=== PATIENT | male | born 1950 | race Caucasian/White ===

== ENCOUNTER → 2018-02-28 08:09 | Outpatient (CLI) | payer OTHER, SELFPAY ==
[2018-02-28 09:47] LABS: Absolute Lymphocyte Count 3.18 X10^3/ul (0.83-4.51); Basophil# 0.06 X10^3/uL; Eosinophil# 0.26 X10^3/uL; Eosinophils% 4.2 % (0-5); Hematocrit 45.9 % (40-54); Hemoglobin 15.5 g/dl (13.0-16.5); Lymphocyte # 3.18 X10^3/ul (4.0); Lymphocyte % 51.5 % (19-41); Mean Corp Hgb Conc 33.8 g/gl (32-36); Mean Corpuscular Hgb 31.2 pg (27.0-32.0); Mean Corpuscular Volume 92.4 fL (80-94); Mean Platelet Vol. 11.3 fl (6.2-12.0); Monocyte# 0.69 X10^3/uL; Monocyte% 11.2 % (0-10); Neutrophil # 1.98 X10^3/uL (2.7-7.7); Neutrophil % 31.9 % (47-70); Platelet Count 245 K/mm3 (150-450); Red Blood Count 4.97 M/mm3 (4.6-6.2); White Blood Count 6.2 K/mm3 (4.4-11.0)
[2018-02-28 09:49] LABS: POSITIVE COUNT NO; POSITIVE DIFFERENTIAL NO; POSITIVE MORPHOLOGY NO
[2018-02-28 10:17] LABS: ALB/GLOB Ratio 0.9 RATIO (0.9-2.4); AST(SGOT) 22 U/L (15-37); Alanine Aminotransfer ALT/SGPT 35 U/L (16-61); Albumin, Serum 3.7 g/dL (3.2-5.0); Alkaline Phosphatase 90 U/L (45-117); Anion Gap 6 (5-15); BUN 16 mg/dL (7-18); BUN/Creat Ratio 22.8 RATIO (10-20); Calcium,Total 8.2 mg/dL (8.5-10.1); Chloride 107 mmol/L (98-107); Cholesterol 164 mg/dL (200); EST Glomerular Filtration Rate 119 mL/min (>60); Est Glom Filt Rate - Afr Amer 144 mL/min (>60); Globulin 3.9 g/dL (2.2-4.2); Glucose 100 mg/dL (74-106); High Density Lipoprotein 32 mg/dL; PSA,Total - Annual Screen 1.45 ng/mL (0.00-4.00); Potassium 4.5 mmol/L (3.5-5.1); Protein, Total 7.6 g/dL (6.4-8.2); Sodium Level 139 mmol/L (136-145); Triglycerides 128 mg/dL; Very Low Density Lipoprotein 26 mg/dL (5-40)
[2018-02-28 10:21] LABS: Hemoglobin A1c 6.1 % (4.2-6.3)
== END ==
PROVIDERS: Family Provider Nurse Practitioner Family; PCP Nurse Practitioner Family; Referring Provider Nurse Practitioner Family; Visit Provider Nurse Practitioner Family
DX: E78.5 Hyperlipidemia, unspecified (principal); Z12.5 Encounter for screening for malignant neoplasm of prostate; R73.01 Impaired fasting glucose
CPT/HCPCS: 36415; 80053; 80061; 83036; 84153; 85025; G0103

== ENCOUNTER → 2019-03-01 05:36 | Outpatient (CLI) | payer OTHER, SELFPAY ==
[2019-03-01 07:10] LABS: Hematocrit 46.8 % (40-54); Hemoglobin 15.7 g/dL (13.0-16.5); Mean Corp Hgb Conc 33.5 g/dL (32-36); Mean Corpuscular Hgb 30.8 pg (27.0-32.0); Mean Corpuscular Volume 91.9 fL (80-94); Mean Platelet Vol. 10.7 fl (6.2-12.0); Platelet Count 218 K/mm3 (150-450); RBC Distribution Width CV 12.6 % (11.6-14.6); RBC Distribution Width SD 42.8 fl (35.1-43.9); Red Blood Count 5.09 M/mm3 (4.6-6.2); White Blood Count 5.9 K/mm3 (4.4-11.0)
[2019-03-01 07:49] LABS: AST(SGOT) 19 U/L (15-37); Alanine Aminotransfer ALT/SGPT 34 U/L (16-61); Albumin, Serum 3.6 g/dL (3.2-5.0); Alkaline Phosphatase 83 U/L (45-117); Anion Gap 8 (5-15); BUN 11 mg/dL (7-18); BUN/Creat Ratio 15.3 RATIO (10-20); Calcium,Total 8.3 mg/dL (8.5-10.1); Chloride 107 mmol/L (98-107); Cholesterol 160 mg/dL (200); Creatinine, Serum 0.72 mg/dL (0.70-1.30); EST Glomerular Filtration Rate 116 mL/min (>60); Est Glom Filt Rate - Afr Amer 140 mL/min (>60); Globulin 3.7 g/dL (2.2-4.2); Glucose 122 mg/dL (74-106); High Density Lipoprotein 30 mg/dL; Potassium 4.1 mmol/L (3.5-5.1); Protein, Total 7.3 g/dL (6.4-8.2); Sodium Level 139 mmol/L (136-145); Triglycerides 164 mg/dL
[2019-03-01 07:50] LABS: PSA,Total - Annual Screen 1.67 ng/mL (0.00-4.00); Very Low Density Lipoprotein 33 mg/dL (5-40)
== END ==
LOC: LAB.FUTURE 05:37 → LAB 05:50
PROVIDERS: Family Provider Nurse Practitioner Family; PCP Nurse Practitioner Family; Referring Provider Nurse Practitioner Family; Visit Provider Nurse Practitioner Family
DX: Z00.00 Encounter for general adult medical examination without abnormal findings (principal); Z12.5 Encounter for screening for malignant neoplasm of prostate; Z13.220 Encounter for screening for lipoid disorders
CPT/HCPCS: 36415; 80053; 80061; 84153; 85027; G0103

== ENCOUNTER → 2020-03-06 14:45 | Outpatient (CLI) | payer OTHER, SELFPAY ==
[2020-03-06 15:16] LABS: Hematocrit 50.4 % (40-54); Hemoglobin 16.5 g/dL (13.0-16.5); Mean Corp Hgb Conc 32.7 g/dL (32-36); Mean Corpuscular Hgb 30.4 pg (27.0-32.0); Mean Corpuscular Volume 92.8 fL (80-94); Mean Platelet Vol. 10.2 fl (6.2-12.0); Platelet Count 262 K/mm3 (150-450); RBC Distribution Width CV 12.6 % (11.6-14.6); RBC Distribution Width SD 43.1 fl (35.1-43.9); Red Blood Count 5.43 M/mm3 (4.6-6.2); White Blood Count 6.9 K/mm3 (4.4-11.0)
[2020-03-06 15:38] LABS: International Normalized Ratio 1.1; Prothrombin Time (Protime)PT. 13.7 SECONDS (11.7-14.9)
[2020-03-06 15:39] LABS: Partial Thromboplast Time 27.5 Seconds (24.1-36.2)
[2020-03-06 15:51] LABS: ALB/GLOB Ratio 0.9 RATIO (0.9-2.4); AST(SGOT) 37 U/L (15-37); Alanine Aminotransfer ALT/SGPT 53 U/L (16-61); Albumin, Serum 3.8 g/dL (3.2-5.0); Alkaline Phosphatase 86 U/L (45-117); Anion Gap 7 (5-15); BUN 13 mg/dL (7-18); Calcium,Total 8.2 mg/dL (8.5-10.1); Chloride 104 mmol/L (98-107); Creatinine, Serum 0.86 mg/dL (0.70-1.30); EST Glomerular Filtration Rate 93 mL/min (>60); Est Glom Filt Rate - Afr Amer 113 mL/min (>60); Globulin 4.3 g/dL (2.2-4.2); Glucose 132 mg/dL (74-106); Potassium 3.8 mmol/L (3.5-5.1); Protein, Total 8.1 g/dL (6.4-8.2); Sodium Level 136 mmol/L (136-145)
== END ==
PROVIDERS: PCP Nurse Practitioner Family; Visit Provider Nurse Practitioner Family
DX: R04.0 Epistaxis (principal)
CPT/HCPCS: 36415; 80053; 85027; 85610; 85730

== ENCOUNTER 2020-03-20 19:32 | Inpatient (IN) | payer OTHER, SELFPAY ==
[2020-03-20] VITALS (15 sets, daily range): BP systolic 110–146; BP diastolic 60–114; PULSE 74–106; RESP 12–30; TEMP 36.2–37.3; O2SAT 60–98; BMI 28.5; BMI 28.4
--- NOTE | 2020-03-20 19:52 | EKG12_ITS ---
Test Reason : DYSRHYTHMIA Blood Pressure : / mmHG Vent. Rate : 105 BPM Atrial Rate : 105 BPM P-R Int : 138 ms QRS Dur : 072 ms QT Int : 354 ms P-R-T Axes : -05 -08 023 degrees QTc Int : 467 ms Sinus tachycardia Otherwise normal ECG Confirmed by ALF MATA, DARIUSZ ([id number]), book editor CHAKA PÉREZ ([id number]) on 03/21/2020 1:08:12 PM Referred By: Heydi Agustin Confirmed By:DARIUSZ MILNER MD
--- NOTE | 2020-03-20 19:55 | ED.VIS.GEN ---
History of Present Illness Chief Complaint: Shortness of Breath Informant: Patient Onset: Days - 10 days Context: Gradual Onset Current Severity: Severe Maximum Severity: Severe Narrative: Patient states he tested positive for Covid approximate 10 days ago. He said increasing shortness of breath since that time. On arrival to the emergency room O2 sat of 60% on room air with respiratory rate around 40. The time of my examination is 83% on a nonrebreather mask. He denies history of lung problems. He states he does not take any medications on a regular basis. His is also here being seen with similar illness. Past Medical History - Allergies and Home Meds Allergies/Adverse Reactions: Allergies Penicillins [PCN] Adverse Reaction (Verified 03/20/20 19:35) Swelling Primary Care Physician: Barron Luna BOX BLANK MACHINE OPERATOR HELPER, BOX BLANK MACHINE OPERATOR HELPER-C [Primary Care Provider] - Lives: Spouse/ Significant Other Review of Systems Eyes: Denies: Visual changes - bilaterally ENT: Denies: Bilateral ear pain Cardiovascular: Denies: Chest pain Respiratory: Reports: Dyspnea, Cough Gastrointestinal: Denies: Abdominal pain, Vomiting, Diarrhea Musculoskeletal: Denies: Extremity Pain Skin: Denies: Rash Hematologic: Denies: Easy bruising, Easy bleeding Allergy: Denies: Uticaria Physical Exam Vital Signs/Narrative: Vital Signs Temp Pulse Resp BP Pulse Ox 03/20/20 19:45 106 H 24 H 82 03/20/20 19:40 103 H 28 H 73 03/20/20 19:33 97.2 F L 100 30 H 138/114 H 60 Inital Vital Signs reviewed: Yes General: Well nourished, Well developed Head: Normocephalic ENT: Dry mucous membranes Neck: Supple Cardiovascular: Regular rate, Regular rhythm Respiratory: Diminished - Diminished at the left base, - - Speaking short sentences. Answering questions appropriately. Abdomen: Soft, Nontender Skin: Normal color Neurological: Alert, Oriented x3 Diagnostic/Tx/Re-eval Impressions Chest X-Ray 03/20/20 20:35 IMPRESSION: Findings consistent with Covid 19 pneumonia more severe on the left Electronically Signed: Alirio Soria MD at 20:56 EST , Service support , 03/20/20 20:35 Chest 1 View (Portable) [RAD] Stat 03/20/20 21:33 CTA Chest W/WO Contrast [CT] Stat Laboratory Results 03/20/20 03/20/20 03/20/20 19:50 19:50 19:50 WBC 10.6 RBC 5.41 Hgb 16.8 H Hct 50.1 MCV 92.6 MCH 31.1 MCHC 33.5 RDW Std Deviation 42.9 RDW Coeff of Carol 12.6 Plt Count 364 MPV 10.0 Immature Gran % (Auto) 1.500 H Neut % (Auto) 64.4 Lymph % (Auto) 22.9 [place] % (Auto) 10.6 H Eos % (Auto) 0.0 Baso % (Auto) 0.6 Absolute Neuts (auto) 6.8 Absolute Lymphs (auto) 2.43 Nucleated RBC % 0 Reactive Lymphocytes 1+ D-Dimer Quant (PE/DVT) 3.20 H* Specimen Type Sample Site pH Bicarbonate Actual Total CO2 Base Excess O2 Saturation O2 % ABG pCO2 ABG pO2 Chang Test Respiration Rate O2 Delivery Device POC PEEP Sodium 134 L Potassium 3.7 Chloride 100 Carbon Dioxide 20.0 L Anion Gap 14 BUN 25 H Creatinine 1.35 H Estim Creat Clear Calc 56.68 Est GFR (MDRD) Af Amer 67 Est GFR (MDRD) Non-Af 56 L BUN/Creatinine Ratio 18.5 Glucose 190 H Lactic Acid Calcium 8.0 L Total Bilirubin 0.80 AST 90 H ALT 102 H Alkaline Phosphatase 104 Troponin I < 0.015 Total Protein 8.2 Albumin 2.8 L Globulin 5.4 H Albumin/Globulin Ratio 0.5 L 03/20/20 03/20/20 19:50 20:27 WBC RBC Hgb Hct MCV MCH MCHC RDW Std Deviation RDW Coeff of Carol Plt Count MPV Immature Gran % (Auto) Neut % (Auto) Lymph % (Auto) [place] % (Auto) Eos % (Auto) Baso % (Auto) Absolute Neuts (auto) Absolute Lymphs (auto) Nucleated RBC % Reactive Lymphocytes D-Dimer Quant (PE/DVT) Specimen Type ART Sample Site L Radial pH 7.48 H Bicarbonate Actual 16.1 L Total CO2 17 Base Excess -8 L O2 Saturation 97 O2 % 100 ABG pCO2 21.9 L ABG pO2 82 Chang Test Positive Respiration Rate 12 O2 Delivery Device BiPAP POC PEEP 10 Sodium Potassium Chloride Carbon Dioxide Anion Gap BUN Creatinine Estim Creat Clear Calc Est GFR (MDRD) Af Amer Est GFR (MDRD) Non-Af BUN/Creatinine Ratio Glucose Lactic Acid 5.9 H* Calcium Total Bilirubin AST ALT Alkaline Phosphatase Troponin I Total Protein Albumin Globulin Albumin/Globulin Ratio - EKG Initial EKG Interpretation: Sinus Tachycardia - Sinus tach at 105 with no acute ischemia. - Medical Decision Making At time of my examination patient was not nonrebreather and satting 83%. He was placed on BiPAP and has been satting 93% on this. Discussion at bedside was initiated regarding his desire for intubation. He states he does not want intubation if it would be required. Patient's blood work does reveal an elevated D-dimer at 3.2 and lactic acid of 5.9. Chest x-ray is consistent with Covid pneumonia. Patient was given Decadron on arrival. Patient be admitted to the ICU and CTA chest has been ordered. - Critical Care Time Critical care time (excluding procedures): 30-74 minutes ED Disposition - Plan for ED Patient: Disposition: Acute Care Hospital [facility] [place] Diagnosis: COVID-19 Referrals: Barron Luna BOX BLANK MACHINE OPERATOR HELPER, BOX BLANK MACHINE OPERATOR HELPER-C [Primary Care Provider] -
--- NOTE | 2020-03-20 20:07 | EKG12_ITS ---
Test Reason : DYSRHYTHMIA Blood Pressure : / mmHG Vent. Rate : 105 BPM Atrial Rate : 105 BPM P-R Int : 138 ms QRS Dur : 068 ms QT Int : 346 ms P-R-T Axes : -11 -06 024 degrees QTc Int : 457 ms Poor data quality, interpretation may be adversely affected Sinus tachycardia Otherwise normal ECG When compared with ECG of 07-JUL-2003 08:35, QT has lengthened Confirmed by NUNU MATA, IGNACIO ([id number]), photographic editor AGUILAR WASHINGTON ([id number]) on 04/07/2020 4:09:41 PM Referred By: Heydi Agustin Confirmed By:JASON EDDY MD
[2020-03-20] MEDS: dexAMETHasone 10 MG/ML Vial 6 MG IV (20:08)
[2020-03-20 20:24] LABS: Absolute Lymphocyte Count 2.43 X10^3/uL (0.83-4.51); Absolute Neutrophil Count 6.8 X10^3/uL (2.0-7.7); Basophil# 0.06 X10^3/uL; Basophil% 0.6 % (0-1); Hematocrit 50.1 % (40-54); Hemoglobin 16.8 g/dL (13.0-16.5); Lymphocyte # 2.43 X10^3/ul (4.0); Lymphocyte % 22.9 % (19-41); Mean Corp Hgb Conc 33.5 g/dL (32-36); Mean Corpuscular Hgb 31.1 pg (27.0-32.0); Mean Corpuscular Volume 92.6 fL (80-94); Monocyte# 1.12 X10^3/uL; Monocyte% 10.6 % (0-10); NRBC Flagged by Analyzer 0 % (0-5); Neutrophil # 6.83 X10^3/uL (2.7-7.7); Neutrophil % 64.4 % (47-70); POSITIVE MORPHOLOGY YES; Platelet Count 364 K/mm3 (150-450); RBC Distribution Width CV 12.6 % (11.6-14.6); RBC Distribution Width SD 42.9 fl (35.1-43.9); Red Blood Count 5.41 M/mm3 (4.6-6.2); White Blood Count 10.6 K/mm3 (4.4-11.0)
[2020-03-20 20:31] LABS: Allen Test Positive; Base Excess -8 mmol/L (-2 to +2); Bicarbonate 16.1 mmol/L (22-26); Blood Gas Specimen Type ART; FI02 100; O2 Delivery Device BiPAP; PEEP 10; PO2 82 mmHG (75-100); RR 12; SITE L Radial; SO2 97 % (95-99); Total Carbon Dioxide 17 mmol/L; pCO2 21.9 mmHg (35-45); pH 7.48 (7.35-7.45)
--- NOTE | 2020-03-20 20:35 | RAD_ITS ---
STUDY: X-RAY CHEST REASON FOR EXAM: Male, 69 years old. DX WITH COVID ON FRIDAY. INCREASED SOB. TECHNIQUE: AP portable COMPARISON: None. FINDINGS: There is interstitial thickening seen in both lower lobes greater on the left as well as the left upper lobe with increasing parenchymal density consistent with Covid 19 pneumonia.. There is no demonstrated pleural abnormality. Normal size heart. Normal mediastinum and [place]iet[place]. Normal visualized pulmonary arteries. Normal visualized aortic arch and descending thoracic aorta. Dorsal spine demonstrates degenerative change. Normal visualized ribs, clavicles, and shoulders. There is no demonstrated abnormality of the visualized soft tissue structures of the upper abdomen. RAD/Chest 1 View (Portable) IMPRESSION: Findings consistent with Covid 19 pneumonia more severe on the left Electronically Signed: Alirio Soria MD at 20:56 EST , Service support ,
[2020-03-20 20:43] LABS: ALB/GLOB Ratio 0.5 RATIO (0.9-2.4); AST(SGOT) 90 U/L (15-37); Alanine Aminotransfer ALT/SGPT 102 U/L (16-61); Albumin, Serum 2.8 g/dL (3.2-5.0); Alkaline Phosphatase 104 U/L (45-117); Anion Gap 14 (5-15); BUN 25 mg/dL (7-18); BUN/Creat Ratio 18.5 RATIO (10-20); Chloride 100 mmol/L (98-107); Creatinine, Serum 1.35 mg/dL (0.70-1.30); EST Glomerular Filtration Rate 56 mL/min (>60); Est Glom Filt Rate - Afr Amer 67 mL/min (>60); Estimated Creatinine Clearance 56.68 ml/min; Globulin 5.4 g/dL (2.2-4.2); Glucose 190 mg/dL (74-106); Potassium 3.7 mmol/L (3.5-5.1); Protein, Total 8.2 g/dL (6.4-8.2); Sodium Level 134 mmol/L (136-145)
[2020-03-20 20:52] LABS: Differential Indicated SCAN CRITERIA MET
[2020-03-20 21:18] LABS: Lactic Acid 5.9 mmol/L (0.4-1.9)
[2020-03-20 21:25] LABS: Reactive Lymphocyte 1+
--- NOTE | 2020-03-20 21:33 | CT_ITS ---
STUDY: CTA CHEST REASON FOR EXAM: Male, 69 years old. Shortness of breath. Elevated d-dimer. Cough. Cold 19 positive. RADIATION DOSAGE (If Supplied By Facility): CTDIvol = ( 14.74 ) mGy, DLP = ( 512.00 ) mGycm TECHNIQUE: The examination was performed with the intravenous administration of IV 100mL Isovue-370. Post-processing of the angiographic images was performed, with multiplanar reformation and 3D reconstruction. Individualized dose optimization techniques were used for this CT. COMPARISON: None. FINDINGS: Normal enhancement of the main pulmonary artery and right and left pulmonary arteries. Normal enhancement of the bilateral peripheral pulmonary arteries. There is no demonstrated pulmonary embolism. Normal thoracic aorta and visualized great vessels. There is no demonstrated aortic dissection. Normal heart and pericardium. Normal mediastinum. Normal hilar regions. Normal visualized trachea and bronchi. The lungs are well expanded. There are vague groundglass densities in the upper lobes. More extensive groundglass infiltrates and areas of consolidation in the lower lobes. Normal pleura. Normal chest wall structures. There are degenerative changes of thoracic spine. There are scattered calcified granulomata within the spleen. CT/CTA Chest W/WO Contrast IMPRESSION: 1. No evidence of pulmonary embolus. 2. No aortic dissection or aneurysm. 3. Groundglass infiltrates with bibasilar consolidation suggestive of COVID 19 pneumonia. 4. Calcified granulomata within the spleen. Electronically Signed: Jose G Cardoso DO at 23:46 EST Tel [phone], Service support ,
--- NOTE | 2020-03-20 21:36 | HP.PCM_ITS ---
Problem List (1) Septic shock Status: Acute (2) Acute respiratory failure with hypoxia Status: Acute (3) Elevated LFTs Status: Acute (4) Hyperglycemia Status: Acute (5) VINNY (acute kidney injury) Status: Acute History of Present Illness Date of Admission: 03/20/20 Chief Complaint: COVID +, increased dyspnea The patient is a 69 y/o M w/ no marked PMHx not on any medications who presents to the [facility] ED on 03/20/20 with history of onset fatigue, malaise, frontal headaches described as throbbing, aching in addition to occasional diarrhea with no nausea or abdominal cramping associated with cough noted to be dry and ongoing persistently worsening dyspnea, more severe over the last 24 hours promp ting ED evaluation. Patient denies any related fever, chills, specifically body aches, alteration in sense of taste or smell. Patient was tested 10 days prior and was Covid positive at that time. Patient's also became symptomatic following onset of his illness. 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 Work-up in the ED included initially T 97.2, heart rate 103, BP 138/114, respiratory rate 30, 60% on room air -->T 98.4, heart rate 106, BP 142/84, respiratory rate 21, 5% on 10% BiPAP, CBC with WC 10.6, hemoglobin 16.8, platelet 364 without marked shift, D-dimer 3.20, ABG with pH 7.48, PCO2 21.9, PO2 82, BiPAP in place, CMP with sodium 134, carbon oxide 20, BUN/creatinine 25/1.35, glucose 190, lactic acid 5.9, calcium 8.0, total bilirubin 0.80, AST/ALT 90/102, alk phos 104, troponin less than 0.015, procalcitonin pending, culture x2 pending per ED, Chest x-ray with findings consistent with COVID-19 pneumonia more severe on the left, CTPA ordered per ED physician and plan to obtain on way to ICU per discussion with ED physician. In the ED patient ministered Decadron 6 mg IV x1. T+S requested. Past Medical History Allergies Penicillins [PCN] Adverse Reaction (Verified 03/20/20 19:35) Swelling Home Medications: Ambulatory Orders Medication Instructions Recorded NK 03/20/20 Surgical History: - - Cholecystectomy, tonsillectomy. Psychiatric History: No pertinent psych hx Lives: Spouse/ Significant Other Smoking Status: Never smoker Tobacco Use: Non-smoker Alcohol: None Drugs: None - *Family History Maternal History Items: - - Mother passed secondary to cerebral hemorrhage denies any other significant history including heart disease, diabetes, cancer. Paternal History Items: - - Father passed secondary to complications he notes with ARDS, denies any significant other history including heart disease, diabetes, cancer. Review of Systems Constitutional: Reports: Anorexia, Malaise, Weakness, Fatigue. Denies: Chills, Fever, Weight Change HEENT: Reports: Head Aches. Denies: Sinus Congestion, Sinus Drainage Cardiovascular: Denies: Chest Pain, Palpitations Respiratory: Reports: Cough, Shortness of Breath, Shortness of breath at rest, Shortness of breath upon exertion. Denies: Sputum production, Wheezing Gastrointestinal: Reports: Diarrhea. Denies: Abdominal Pain, Nausea, Vomiting Genitourinary: Denies: Dysuria Musculoskeletal: Denies: Joint Pain, Joint Tenderness Skin: Denies: Rash, Wounds Neurological: Denies: Numbness, Tingling, Focal weakness Psychiatric: Denies: Anxiety, Depression, Homicidal Ideations, Suicidal Ideations Hematologic/ Lymphatic: Denies: Easy Bruising, Easy Bleeding VTE Information - Inpt Only VTE Present on Admission: No VTE Mechan Device Prophylaxis: SCD's VTE Pharm Prophylaxis ordered?: Yes Patient Problems: Active and Suspected Problems COVID-19 (Acute) Subjective: Seated upright in the ED bed, BiPAP in place, oxygenation still low 90s, with any attempted discussion patient with evident dyspnea with increased accessory muscle usage despite BiPAP. Objective: Physical Examination: General: awake, alert, oriented x 3 and cooperative, seated upright in the ED bed, evident respiratory distress, BiPAP in place. Skin: normal color, turgor, no icterus, cyanosis. HEENT: AT/NC, EOMI, PERRLA, dry MM, BiPAP in place, no carotid bruits or JVD noted. Lungs: Diminished breath sounds bilaterally, greater bases, left greater than right,, no rales, ronchi or wheezing. Heart: Tachycardic with regular rhythm; no gallop, rub audible. Abdomen: soft, NTTP, ND, normal BS, no HSM. Extremities: no cyanosis, clubbing, or edema. Neurological: patient awake, alert, oriented as noted; patient fatigued but cognitive function appears near intact; pupils equally reactive to light and accomodation; cranial nerves II-XII grossly normal, moving all 4 extremities, no focal deficits, strength severely global decrease secondary to acute presentation. Psychiatric: affect appears fatigued, evident respiratory distress, no acute evidence of depressive or anxiety feelings. - Physical Exam Vitals/I&O's: Vital Signs Temp Pulse Resp BP Pulse Ox 98.4 F 102 H 21 H 146/85 H 94 03/20/20 19:50 03/20/20 20:32 03/20/20 20:32 03/20/20 20:32 03/20/20 20:32 Oxygen Delivery Method Bi-pap Weight: 210 lb 12.191 oz Body Mass Index (BMI) 28.5 Laboratory Results 03/20/20 19:50: WBC 10.6, RBC 5.41, Hgb 16.8 H, Hct 50.1, MCV 92.6, MCH 31.1, MCHC 33.5, RDW Std Deviation 42.9, RDW Coeff of Carol 12.6, Plt Count 364, MPV 10.0, Immature Gran % (Auto) 1.500 H, Neut % (Auto) 64.4, Lymph % (Auto) 22.9, [place] % (Auto) 10.6 H, Eos % (Auto) 0.0, Baso % (Auto) 0.6, Absolute Neuts (auto) 6.8, Absolute Lymphs (auto) 2.43, Nucleated RBC % 0, Reactive Lymphocytes 1+ 03/20/20 19:50: D-Dimer Quant (PE/DVT) 3.20 H* 03/20/20 19:50: Sodium 134 L, Potassium 3.7, Chloride 100, Carbon Dioxide 20.0 L , Anion Gap 14, BUN 25 H, Creatinine 1.35 H, Estim Creat Clear Calc 56.68, Est GFR (MDRD) Af Amer 67, Est GFR (MDRD) Non-Af 56 L, BUN/Creatinine Ratio 18.5, Glucose 190 H, Calcium 8.0 L, Total Bilirubin 0.80, AST 90 H, ALT 102 H, Alkaline Phosphatase 104, Troponin I < 0.015, Total Protein 8.2, Albumin 2.8 L, Globulin 5.4 H, Albumin/Globulin Ratio 0.5 L 03/20/20 19:50: Lactic Acid 5.9 H* 03/20/20 19:50: Procalcitonin Pending 03/20/20 20:27: Specimen Type ART, Sample Site L Radial, pH 7.48 H, Bicarbonate Actual 16.1 L, Total CO2 17, Base Excess -8 L, O2 Saturation 97, O2 % 100, ABG pCO2 21.9 L, ABG pO2 82, Chang Test Positive, Respiration Rate 12, O2 Delivery Device BiPAP, POC PEEP 10 Current Medications Iopamidol (Contrast Allergy Safety Check) 0 ml IV X1 [facility] Assessment/Plan All Active Problems COVID-19 (Acute) Septic shock (Acute) Acute respiratory failure with hypoxia (Acute) Elevated LFTs (Acute) Hyperglycemia (Acute) VINNY (acute kidney injury) (Acute) The patient is a 69 y/o M w/ no marked PMHx not on any medications who presents to the [facility] ED on 03/20/20 with history of onset fatigue, malaise, frontal headaches described as throbbing, aching in addition to occasional diarrhea with no nausea or abdominal cramping associated with cough noted to be dry and ongoing persistently worsening dyspnea, more severe over the last 24 hours, tested COVID + prompting ED evaluation. 1. Acute Hypoxic Respiratory Failure secondary to Septic Shock (via LA) secondary to Acute Hypoxic Respiratory Failure secondary to Bilateral Pneumonia secondary to Acute Viral Syndrome, COVID-19: Will admit to the ICU under COVID precautions, initiate ICU and ID consultations, continue BIPAP currently, trend LA, only judiciously hydrating despite this secondary to acute presentation as noted, NPO status until clinically improving, HOB, IS parameters, respiratory viral panel pending, per COVID order set protocol will obtain procalcitonin, CRP, CPK, Ferritin, LDH, continue supportive care including q 2 hour turning including prone given no prone bed availability, closely monitor for worsening status for ARDS and multiorgan failure. Patient will be assessed for initiation of remdesivir and convalescent plasma per ID and pulmonary medicine. 2. Acute kidney injury: Secondary to acute presentation as noted #1. Admission BUN/Cr 25/1.35, prior baseline creatinine noted to be 0.7. Will very judiciously hydrate given acute presentation and is noted with risk of to aggressively hydrated, hold nephrotoxic medications and repeat chemistry in AM. 3. Hyperglycemia: Admission glucose 190, suspect likely stress response given acute presentation of her 1, will obtain A1c to be cautious. 4. Elevated LFTs: Admission total bilirubin 0.80, AST/ALT 90/102, alk phos 104, secondary to acute Covid-19 viral syndrome, trend CMPs. 5. DVT prophylaxis: SCDs, Lovenox. 6. CODE status: Patient HCPOA is his and living will is currently in place. Discussed CODE status at length including difference between FULL code, DNR-CCA and DNR-CC status. Following discussions about the differences in these status, requested Full Code status. Advanced Care Planning Face to Face Time: 16 minutes. Inpatient E&M: 57177 Init Hosp L3 Procedures: 82622 Advncd Care Plan 30 Min
[2020-03-20 22:05] LABS: Procalcitonin 0.19 ng/mL (0.00-0.09)
[2020-03-20 23:56] LABS: Ferritin 1957 ng/mL (26-388); LDH 678 U/L (87-241); Magnesium 2.4 mg/dL (1.6-2.6)
[2020-03-21] VITALS (34 sets, daily range): BP systolic 86–155; BP diastolic 49–89; PULSE 63–83; RESP 12–28; TEMP 36.4–37.3; O2SAT 88–97; BMI 28.4
[2020-03-21 00:18] LABS: Reflex Lactate? Y
[2020-03-21 00:34] LABS: Lactic Acid 1.9 mmol/L (0.4-1.9)
[2020-03-21] MEDS: Enoxaparin 30 MG/0.3 ML Syringe SC (01:00)
[2020-03-21] MEDS: 0.9% Normal Saline 1,000 ML 100 ML IV (01:01)
[2020-03-21 05:23] LABS: Absolute Lymphocyte Count 1.04 X10^3/uL (0.83-4.51); Absolute Neutrophil Count 5.2 X10^3/uL (2.0-7.7); Basophil# 0.05 X10^3/uL; Basophil% 0.7 % (0-1); Hemoglobin 14.5 g/dL (13.0-16.5); Lymphocyte # 1.04 X10^3/ul (4.0); Lymphocyte % 15.1 % (19-41); Mean Corp Hgb Conc 33.7 g/dL (32-36); Mean Corpuscular Hgb 30.7 pg (27.0-32.0); Mean Corpuscular Volume 90.9 fL (80-94); Mean Platelet Vol. 9.5 fl (6.2-12.0); Monocyte# 0.54 X10^3/uL; Monocyte% 7.8 % (0-10); NRBC Flagged by Analyzer 0 % (0-5); Neutrophil # 5.15 X10^3/uL (2.7-7.7); Neutrophil % 74.5 % (47-70); POSITIVE MORPHOLOGY YES; Platelet Count 300 K/mm3 (150-450); RBC Distribution Width CV 12.3 % (11.6-14.6); RBC Distribution Width SD 41.1 fl (35.1-43.9); Red Blood Count 4.73 M/mm3 (4.6-6.2); White Blood Count 6.9 K/mm3 (4.4-11.0)
[2020-03-21 05:42] LABS: ALB/GLOB Ratio 0.5 RATIO (0.9-2.4); AST(SGOT) 64 U/L (15-37); Alanine Aminotransfer ALT/SGPT 82 U/L (16-61); Albumin, Serum 2.2 g/dL (3.2-5.0); Alkaline Phosphatase 80 U/L (45-117); Anion Gap 8 (5-15); BUN 26 mg/dL (7-18); Calcium,Total 7.2 mg/dL (8.5-10.1); Chloride 106 mmol/L (98-107); Creatinine, Serum 0.79 mg/dL (0.70-1.30); EST Glomerular Filtration Rate 104 mL/min (>60); Est Glom Filt Rate - Afr Amer 126 mL/min (>60); Estimated Creatinine Clearance 76.52 ml/min; Ferritin 1809 ng/mL (26-388); Globulin 4.5 g/dL (2.2-4.2); Glucose 201 mg/dL (74-106); Potassium 4.3 mmol/L (3.5-5.1); Protein, Total 6.7 g/dL (6.4-8.2); Sodium Level 135 mmol/L (136-145)
[2020-03-21 05:50] LABS: Procalcitonin 0.21 ng/mL (0.00-0.09)
[2020-03-21 05:51] LABS: Differential Indicated SCAN CRITERIA MET
[2020-03-21 06:00] LABS: Differential Comment SCANNED
--- NOTE | 2020-03-21 06:03 | CON.PCM_ITS ---
Reason for Consult Date of Consultation: 03/21/20 Reason for Consultation: Septic shock, respiratory failure, Covid History of Present Illness: The patient is a 69-year-old male, with a history as outlined below, who presented to the emergency department on March 20 with complaints of progr essive shortness of breath. The patient's is also currently admitted to the hospital with coronavirus as well. The patient's symptoms initially began 2 weeks ago with generalized malaise and myalgias. He subsequently went on to develop shortness of breath and a nonproductive cough over the course of the last week. The patient was apparently tested for coronavirus and found to be positive approximately 10 days ago. On presentation to the emergency department, the patient was noted to be afebrile and hemodynamically stable. He was, nevertheless, tachypneic and significantly hypoxemic. Laboratory evaluation revealed a normal white blood cell count. D-dimer was elevated to 3.2. Chemistry profile was notable for a creatinine of 1.35. Lactate was elevated to 5.9. AST and ALT were increased to 90 and 102, respectively. Troponin was negative. Procalcitonin was noted to be 0.19. CTA chest showed no evidence for PE revealed bilateral groundglass changes with bibasilar consolidation. The patient was subsequently started on BiPAP and Decadron. He was admitted to the medical intensive care unit for further management. Past Medical History Allergies Penicillins [PCN] Adverse Reaction (Verified 03/20/20 19:35) Swelling Home Medications: Ambulatory Orders Medication Instructions Recorded NK 03/20/20 Surgical History: - - Cholecystectomy, tonsillectomy. Psychiatric History: No pertinent psych hx Lives: Spouse/ Significant Other Smoking Status: Never smoker Tobacco Use: Non-smoker Alcohol: None Drugs: None - *Family History Maternal History Items: - - Mother passed secondary to cerebral hemorrhage denies any other significant history including heart disease, diabetes, cancer. Paternal History Items: - - Father passed secondary to complications he notes with ARDS, denies any significant other history including heart disease, diabetes, cancer. Review of Systems Constitutional: Denies: Chills, Fever Eyes: Denies: Blurred vision, Double vision HEENT: Denies: Head Aches, Sinus Congestion, Sinus Drainage Cardiovascular: Denies: Chest Pain, Palpitations Respiratory: Reports: Cough, Shortness of Breath Gastrointestinal: Denies: Abdominal Pain, Nausea, Vomiting Genitourinary: Denies: Dysuria Musculoskeletal: Denies: Joint Pain, Joint Tenderness Skin: Denies: Rash, Wounds Neurological: Denies: Numbness, Tingling, Focal weakness Psychiatric: Denies: Anxiety, Depression, Homicidal Ideations, Suicidal Ideations Hematologic/ Lymphatic: Denies: Easy Bruising, Easy Bleeding Patient Problems: Active and Suspected Problems COVID-19 (Acute) Septic shock (Acute) Acute respiratory failure with hypoxia (Acute) Elevated LFTs (Acute) Hyperglycemia (Acute) VINNY (acute kidney injury) (Acute) Objective: The patient's most recent lab work, culture data and imaging studies have all been personally reviewed. - Physical Exam Vitals/I&O's: Vital Signs Temp Pulse Resp BP Pulse Ox 99.1 F 68 26 H 111/88 H 95 03/21/20 04:00 03/21/20 05:00 03/21/20 05:00 03/21/20 05:00 03/21/20 05:00 Oxygen Delivery Method Bi-pap Weight: 209 lb 10.554 oz Body Mass Index (BMI) 28.4 Intake and Output for Last 24 Hours 03/19/20 03/20/20 03/21/20 23:59 23:59 23:59 Intake Total 0 / 0 Output Total 500 / 500 Balance -500 / -500 General: Alert, Cooperative, No apparent distress, - - Currently tolerating BiPAP without issue. HEENT: Atraumatic, PERRLA, Normocephalic Oral: Moist Mucosa Neck: Supple, No Nodes, Trachea Midline Lungs: No rhonchi, No wheeze, No rales, Diminished, Tachypneic Cardiovascular: Regular rate, Regular Rhythm Abdomen: Bowel Sounds Present, Soft, Non Tender Extremities: No clubbing, No cyanosis, No edema Skin: No breakdown Musculoskeletal: No Tenderness to Palpation of Joints or Extremities, No Muscle Wasting Lymphatic: No Cervical, Supraclavicular, or Inguinal Adenopathy Neurological: Cranial nerves II-XII grossly intact, Neuro grossly intact Psych/Mental Status: Normal Affect, Appropriate Labs (Last 48 Hours) 03/20/20 03/20/20 03/20/20 19:50 19:50 19:50 WBC 10.6 RBC 5.41 Hgb 16.8 H Hct 50.1 MCV 92.6 MCH 31.1 MCHC 33.5 RDW Std Deviation 42.9 RDW Coeff of Carol 12.6 Plt Count 364 MPV 10.0 Immature Gran % (Auto) 1.500 H Neut % (Auto) 64.4 Lymph % (Auto) 22.9 [place] % (Auto) 10.6 H Eos % (Auto) 0.0 Baso % (Auto) 0.6 Absolute Neuts (auto) 6.8 Absolute Lymphs (auto) 2.43 Nucleated RBC % 0 Differential Comment Reactive Lymphocytes 1+ D-Dimer Quant (PE/DVT) 3.20 H* Specimen Type Sample Site pH Bicarbonate Actual Total CO2 Base Excess O2 Saturation O2 % ABG pCO2 ABG pO2 Chang Test Respiration Rate O2 Delivery Device POC PEEP Sodium 134 L Potassium 3.7 Chloride 100 Carbon Dioxide 20.0 L Anion Gap 14 BUN 25 H Creatinine 1.35 H Estim Creat Clear Calc 56.68 Est GFR (MDRD) Af Amer 67 Est GFR (MDRD) Non-Af 56 L BUN/Creatinine Ratio 18.5 Glucose 190 H Hemoglobin A1c Lactic Acid Calcium 8.0 L Magnesium Ferritin Total Bilirubin 0.80 AST 90 H ALT 102 H Alkaline Phosphatase 104 Lactate Dehydrogenase Troponin I < 0.015 C-React Prot Ext Range Total Protein 8.2 Albumin 2.8 L Globulin 5.4 H Albumin/Globulin Ratio 0.5 L Procalcitonin Blood Type Antibody Screen 03/20/20 03/20/20 03/20/20 19:50 19:50 19:50 WBC RBC Hgb Hct MCV MCH MCHC RDW Std Deviation RDW Coeff of Carol Plt Count MPV Immature Gran % (Auto) Neut % (Auto) Lymph % (Auto) [place] % (Auto) Eos % (Auto) Baso % (Auto) Absolute Neuts (auto) Absolute Lymphs (auto) Nucleated RBC % Differential Comment Reactive Lymphocytes D-Dimer Quant (PE/DVT) Specimen Type Sample Site pH Bicarbonate Actual Total CO2 Base Excess O2 Saturation O2 % ABG pCO2 ABG pO2 Chang Test Respiration Rate O2 Delivery Device POC PEEP Sodium Potassium Chloride Carbon Dioxide Anion Gap BUN Creatinine Estim Creat Clear Calc Est GFR (MDRD) Af Amer Est GFR (MDRD) Non-Af BUN/Creatinine Ratio Glucose Hemoglobin A1c Lactic Acid 5.9 H* Calcium Magnesium 2.4 Ferritin 1957 H Total Bilirubin AST ALT Alkaline Phosphatase Lactate Dehydrogenase 678 H Troponin I C-React Prot Ext Range 81.50 H Total Protein Albumin Globulin Albumin/Globulin Ratio Procalcitonin 0.19 H Blood Type Antibody Screen 03/20/20 03/20/20 03/20/20 20:27 23:25 23:35 WBC RBC Hgb Hct MCV MCH MCHC RDW Std Deviation RDW Coeff of Carol Plt Count MPV Immature Gran % (Auto) Neut % (Auto) Lymph % (Auto) [place] % (Auto) Eos % (Auto) Baso % (Auto) Absolute Neuts (auto) Absolute Lymphs (auto) Nucleated RBC % Differential Comment Reactive Lymphocytes D-Dimer Quant (PE/DVT) Specimen Type ART Sample Site L Radial pH 7.48 H Bicarbonate Actual 16.1 L Total CO2 17 Base Excess -8 L O2 Saturation 97 O2 % 100 ABG pCO2 21.9 L ABG pO2 82 Chang Test Positive Respiration Rate 12 O2 Delivery Device BiPAP POC PEEP 10 Sodium Potassium Chloride Carbon Dioxide Anion Gap BUN Creatinine Estim Creat Clear Calc Est GFR (MDRD) Af Amer Est GFR (MDRD) Non-Af BUN/Creatinine Ratio Glucose Hemoglobin A1c Lactic Acid 1.9 Calcium Magnesium Ferritin Total Bilirubin AST ALT Alkaline Phosphatase Lactate Dehydrogenase Troponin I C-React Prot Ext Range Total Protein Albumin Globulin Albumin/Globulin Ratio Procalcitonin Blood Type A POSITIVE Antibody Screen NEGATIVE 03/21/20 03/21/20 03/21/20 05:00 05:00 05:00 WBC RBC Hgb Hct MCV MCH MCHC RDW Std Deviation RDW Coeff of Carol Plt Count MPV Immature Gran % (Auto) Neut % (Auto) Lymph % (Auto) [place] % (Auto) Eos % (Auto) Baso % (Auto) Absolute Neuts (auto) Absolute Lymphs (auto) Nucleated RBC % Differential Comment Reactive Lymphocytes D-Dimer Quant (PE/DVT) 2.70 H* Specimen Type Sample Site pH Bicarbonate Actual Total CO2 Base Excess O2 Saturation O2 % ABG pCO2 ABG pO2 Chang Test Respiration Rate O2 Delivery Device POC PEEP Sodium 135 L Potassium 4.3 Chloride 106 Carbon Dioxide 21.0 Anion Gap 8 BUN 26 H Creatinine 0.79 Estim Creat Clear Calc 76.52 Est GFR (MDRD) Af Amer 126 Est GFR (MDRD) Non-Af 104 BUN/Creatinine Ratio 33.0 H Glucose 201 H Hemoglobin A1c Pending Lactic Acid Calcium 7.2 L Magnesium Ferritin 1809 H Total Bilirubin 0.50 AST 64 H ALT 82 H Alkaline Phosphatase 80 Lactate Dehydrogenase Troponin I C-React Prot Ext Range 83.60 H Total Protein 6.7 Albumin 2.2 L Globulin 4.5 H Albumin/Globulin Ratio 0.5 L Procalcitonin Blood Type Antibody Screen 03/21/20 03/21/20 05:00 05:00 WBC 6.9 RBC 4.73 Hgb 14.5 Hct 43.0 MCV 90.9 MCH 30.7 MCHC 33.7 RDW Std Deviation 41.1 RDW Coeff of Carol 12.3 Plt Count 300 MPV 9.5 Immature Gran % (Auto) 1.900 H Neut % (Auto) 74.5 H Lymph % (Auto) 15.1 L [place] % (Auto) 7.8 Eos % (Auto) 0.0 Baso % (Auto) 0.7 Absolute Neuts (auto) 5.2 Absolute Lymphs (auto) 1.04 Nucleated RBC % 0 Differential Comment SCANNED Reactive Lymphocytes D-Dimer Quant (PE/DVT) Specimen Type Sample Site pH Bicarbonate Actual Total CO2 Base Excess O2 Saturation O2 % ABG pCO2 ABG pO2 Chang Test Respiration Rate O2 Delivery Device POC PEEP Sodium Potassium Chloride Carbon Dioxide Anion Gap BUN Creatinine Estim Creat Clear Calc Est GFR (MDRD) Af Amer Est GFR (MDRD) Non-Af BUN/Creatinine Ratio Glucose Hemoglobin A1c Lactic Acid Calcium Magnesium Ferritin Total Bilirubin AST ALT Alkaline Phosphatase Lactate Dehydrogenase Troponin I C-React Prot Ext Range Total Protein Albumin Globulin Albumin/Globulin Ratio Procalcitonin 0.21 H Blood Type Antibody Screen Microbiology 03/21/20 00:00 Mucosa - Nasopharyngeal Respiratory Panel (PCR) - Final Clinical Impression(s) from Imaging Studies Chest X-Ray 03/20/20 20:35 IMPRESSION: Findings consistent with Covid 19 pneumonia more severe on the left Electronically Signed: Alirio Soria MD at 20:56 EST , Service support , Chest CTA 03/20/20 21:33 IMPRESSION: 1. No evidence of pulmonary embolus. 2. No aortic dissection or aneurysm. 3. Groundglass infiltrates with bibasilar consolidation suggestive of COVID 19 pneumonia. 4. Calcified granulomata within the spleen. Electronically Signed: Jose G Cardoso DO at 23:46 EST Tel [phone], Service support , Current Medications Acetaminophen (Acetaminophen 650 Mg Suppository) 650 mg RECTAL Q4H PRN PRN PRN Reason: Pain Score 1-10/Temp > 100.7 F Acetaminophen (Acetaminophen 325 Mg Tablet) 650 mg PO Q6H PRN PRN PRN Reason: Pain Score 1-10/Temp > 100.7 F Al Hydroxide/Mg Hydroxide (Mag Hydrox/Al Hydrox/Simeth 30 Ml Udc) 30 ml PO Q6H PRN PRN PRN Reason: Gastric Burning Albuterol Sulfate (Albuterol Sulfate 18 Gm Inhaler (200 Puffs)) 1 puff IH Q2H PRN PRN PRN Reason: Dyspnea, wheezing Dexamethasone Sodium Phosphate (Dexamethasone 10 Mg/Ml Vial) 6 mg IV DAILY [facility] Stop: 03/30/20 10:01 Enoxaparin Sodium (Enoxaparin 30 Mg/0.3 Ml Syringe) 30 mg SC BID [facility] Last Admin: 03/21/20 01:00 Dose: 30 mg Documented by: Famotidine (Famotidine 20 Mg Tablet) 20 mg PO BID [facility] Last Admin: 03/21/20 01:01 Dose: Not Given Documented by: Guaifenesin (Guaifenesin 10 Ml Udc (200mg/10ml)) 10 ml PO Q4H PRN PRN PRN Reason: COUGH Hydralazine HCl (Hydralazine 20 Mg/Ml Vial) 10 mg IV Q4H PRN PRN PRN Reason: SBP > 160 Sodium Chloride () 1,000 mls @ 100 mls/hr IV .Q10H [facility] Stop: 03/21/20 09:04 Last Admin: 03/21/20 01:01 Dose: 100 mls/hr Documented by: Sodium Chloride () 250 mls @ 15 mls/hr IV .[id number] PRN PRN Reason: Saline Flush Sodium Chloride () 250 mls @ 15 mls/hr IV .[id number] PRN PRN Reason: Additional IVPB Infusion Loperamide HCl (Loperamide 2 Mg Capsule) 2 mg PO Q2H PRN PRN PRN Reason: DIARRHEA/LOOSE STOOLS Melatonin (Melatonin 3 Mg Tablet) 3 mg PO QHS PRN PRN PRN Reason: INSOMNIA Miscellaneous Information (Inhaler, Assist Devices 1 Each Spacer) 1 each INHALATION PRN PRN PRN Reason: WITH ALBUTEROL INHALER Morphine Sulfate (Morphine 2 Mg/Ml Syringe) 2 mg IV Q3H PRN PRN PRN Reason: Pain Score 6-10 Nitroglycerin (Nitroglycerin (Inpatient Use) 0.4 Mg Tab.Subl) 0.4 mg SUBLINGUAL Q5M PRN PRN Reason: CARDIAC/CHEST PAIN Ondansetron HCl (Ondansetron 4 Mg/2 Ml Vial) 4 mg IV Q8H PRN PRN PRN Reason: NAUSEA/VOMITING Oxycodone HCl (Oxycodone 5 Mg Tablet) 5 mg PO Q4H PRN PRN PRN Reason: Pain Score 4-5 Prochlorperazine Edisylate (Prochlorperazine 10 Mg/2 Ml Vial) 5 mg IV Q4H PRN PRN PRN Reason: Breakthrough Nausea/Vomiting Sodium Chloride (0.9% Saline Lock 10 Ml Syringe) 10 - 40 ml IV UD PRN PRN Reason: SALINE FLUSH Throat Lozenges (Benzocaine/Menthol 1 Lozenge) 1 lozenge MUCOUS MEM Q2H PRN PRN PRN Reason: SORE THROAT Assessment/Plan Active and Suspected Problems COVID-19 (Acute) Septic shock (Acute) Acute respiratory failure with hypoxia (Acute) Elevated LFTs (Acute) Hyperglycemia (Acute) VINNY (acute kidney injury) (Acute) RECOMMENDATIONS: 1. Continue BiPAP therapy and wean FiO2 to maintain saturations at or above 90%. 2. Continue Decadron 6 mg daily x10 days. 3. Unclear benefit of remdesivir or convalescent plasma, given duration of symptoms. Will defer to infectious diseases. 4. Continue therapeutic Lovenox, given elevated D-dimer. IMPRESSIONS: 1. Acute hypoxemic respiratory failure secondary to COVID-19 pneumonia In total, the patient has had symptoms now for approximately 2 weeks. D-dimer was elevated on presentation without PE identified on CTA chest. However, given the patient's tenuous respiratory status and elevated D-dimer level, will continue therapeutic Lovenox for now. The patient has already been started on Decadron 6 mg daily, which will be continued. Given the patient's duration of symptoms, he is unlikely to benefit significantly from remdesivir or convalescent plasma. However, infectious diseases consultation is currently pending. For now, the patient will be continued on BiPAP therapy, with plans to wean FiO2 to maintain saturations at or above 90%. If he does well this morning, attempt can be made to transition him to Airvo heated high flow oxygen for patient comfort. 2. Acute kidney injury Likely prerenal in etiology. Improvement was noted with gentle IV fluid hydration. Continue to monitor urine output. No current indication for renal replacement therapy. 3. Lactic acidemia Likely secondary to presenting hypoxemia. Improved with stabilization of the patient's oxygenation status. TIME: 37 minutes of critical care time, independent of procedures, was spent addressing the patient's acute hypoxemic respiratory failure secondary to COVID- 19 pneumonia, acute kidney injury, lactic acidemia, review of all data and collaboration with the care team. [id number]) [phone] [id number] Critical care first hour
--- NOTE | 2020-03-21 07:22 | PN_ITS ---
Patient Problems: Active and Suspected Problems COVID-19 (Acute) Septic shock (Acute) Acute respiratory failure with hypoxia (Acute) Elevated LFTs (Acute) Hyperglycemia (Acute) VINNY (acute kidney injury) (Acute) Reason for Visit: Acute hypoxic respiratory failure secondary to COVID-19 pneumonitis Subjective: Patient is a 69-year-old gentleman diagnosed with COVID-19 infection 10 days prior to this admission who presented to the emergency department with progressive shortness of breath Objective: GENERAL: Patient on BiPAP HEENT: Atraumatic; EYES; Anicteric, Normal Conjunctiva NECK; supple, normal thyroid, RESPIRATORY: Diminished to auscultation CARDIOVASCULAR: Regular S1 S2, GI: soft, normoactive bowel sounds, : No Renal angle tenderness; EXTREMITIES: No edema, no clubbing, MUSCULOSKELETAL: no muscle waisting NEURO: Awake; no lateralizing signs. SKIN: No Rash PSYCH; Flat affect Vitals/I&O's: Vital Signs Temp Pulse Resp BP Pulse Ox 99.1 F 83 18 95/58 L 90 03/21/20 04:00 03/21/20 06:00 03/21/20 06:00 03/21/20 06:00 03/21/20 06:00 Oxygen Delivery Method Bi-pap Weight: 95.1 kg Body Mass Index (BMI) 28.4 Intake and Output for Last 24 Hours 03/19/20 03/20/20 03/21/20 23:59 23:59 23:59 Intake Total 0 / 0 Output Total 500 / 500 Balance -500 / -500 Microbiology Past 72 Hours 03/21/20 00:00 Mucosa - Nasopharyngeal Respiratory Panel (PCR) - Final Laboratory Results 03/20/20 19:50: WBC 10.6, RBC 5.41, Hgb 16.8 H, Hct 50.1, MCV 92.6, MCH 31.1, MCHC 33.5, RDW Std Deviation 42.9, RDW Coeff of Carol 12.6, Plt Count 364, MPV 10.0, Immature Gran % (Auto) 1.500 H, Neut % (Auto) 64.4, Lymph % (Auto) 22.9, [place] % (Auto) 10.6 H, Eos % (Auto) 0.0, Baso % (Auto) 0.6, Absolute Neuts (auto) 6.8, Absolute Lymphs (auto) 2.43, Nucleated RBC % 0, Reactive Lymphocytes 1+ 03/20/20 19:50: D-Dimer Quant (PE/DVT) 3.20 H* 03/20/20 19:50: Sodium 134 L, Potassium 3.7, Chloride 100, Carbon Dioxide 20.0 L , Anion Gap 14, BUN 25 H, Creatinine 1.35 H, Estim Creat Clear Calc 56.68, Est GFR (MDRD) Af Amer 67, Est GFR (MDRD) Non-Af 56 L, BUN/Creatinine Ratio 18.5, Glucose 190 H, Calcium 8.0 L, Total Bilirubin 0.80, AST 90 H, ALT 102 H, Alkaline Phosphatase 104, Troponin I < 0.015, Total Protein 8.2, Albumin 2.8 L, Globulin 5.4 H, Albumin/Globulin Ratio 0.5 L 03/20/20 19:50: Lactic Acid 5.9 H* 03/20/20 19:50: Procalcitonin 0.19 H 03/20/20 19:50: Magnesium 2.4, Ferritin 1957 H, Lactate Dehydrogenase 678 H, C- React Prot Ext Range 81.50 H 03/20/20 20:27: Specimen Type ART, Sample Site L Radial, pH 7.48 H, Bicarbonate Actual 16.1 L, Total CO2 17, Base Excess -8 L, O2 Saturation 97, O2 % 100, ABG pCO2 21.9 L, ABG pO2 82, Chang Test Positive, Respiration Rate 12, O2 Delivery Device BiPAP, POC PEEP 10 03/20/20 23:25: Blood Type A POSITIVE, Antibody Screen NEGATIVE 03/20/20 23:35: Lactic Acid 1.9 03/21/20 03:00: B-Natriuretic Peptide Pending 03/21/20 05:00: Hemoglobin A1c Pending 03/21/20 05:00: D-Dimer Quant (PE/DVT) 2.70 H* 03/21/20 05:00: Sodium 135 L, Potassium 4.3, Chloride 106, Carbon Dioxide 21.0, Anion Gap 8, BUN 26 H, Creatinine 0.79, Estim Creat Clear Calc 76.52, Est GFR (MDRD) Af Amer 126, Est GFR (MDRD) Non-Af 104, BUN/Creatinine Ratio 33.0 H, Glucose 201 H, Calcium 7.2 L, Ferritin 1809 H, Total Bilirubin 0.50, AST 64 H, ALT 82 H, Alkaline Phosphatase 80, C-React Prot Ext Range 83.60 H, Total Protein 6.7, Albumin 2.2 L, Globulin 4.5 H, Albumin/Globulin Ratio 0.5 L 03/21/20 05:00: Procalcitonin 0.21 H 03/21/20 05:00: WBC 6.9, RBC 4.73, Hgb 14.5, Hct 43.0, MCV 90.9, MCH 30.7, MCHC 33.7, RDW Std Deviation 41.1, RDW Coeff of Carol 12.3, Plt Count 300, MPV 9.5, Immature Gran % (Auto) 1.900 H, Neut % (Auto) 74.5 H, Lymph % (Auto) 15.1 L, [place] % (Auto) 7.8, Eos % (Auto) 0.0, Baso % (Auto) 0.7, Absolute Neuts (auto) 5.2, Absolute Lymphs (auto) 1.04, Nucleated RBC % 0, Differential Comment SCANNED Current Medications Acetaminophen (Acetaminophen 650 Mg Suppository) 650 mg RECTAL Q4H PRN PRN PRN Reason: Pain Score 1-10/Temp > 100.7 F Acetaminophen (Acetaminophen 325 Mg Tablet) 650 mg PO Q6H PRN PRN PRN Reason: Pain Score 1-10/Temp > 100.7 F Al Hydroxide/Mg Hydroxide (Mag Hydrox/Al Hydrox/Simeth 30 Ml Udc) 30 ml PO Q6H PRN PRN PRN Reason: Gastric Burning Albuterol Sulfate (Albuterol Sulfate 18 Gm Inhaler (200 Puffs)) 1 puff IH Q2H PRN PRN PRN Reason: Dyspnea, wheezing Dexamethasone Sodium Phosphate (Dexamethasone 10 Mg/Ml Vial) 6 mg IV DAILY [facility] Stop: 03/30/20 10:01 Enoxaparin Sodium (Enoxaparin 30 Mg/0.3 Ml Syringe) 30 mg SC BID [facility] Last Admin: 03/21/20 01:00 Dose: 30 mg Documented by: Famotidine (Famotidine 20 Mg Tablet) 20 mg PO BID [facility] Last Admin: 03/21/20 01:01 Dose: Not Given Documented by: Guaifenesin (Guaifenesin 10 Ml Udc (200mg/10ml)) 10 ml PO Q4H PRN PRN PRN Reason: COUGH Hydralazine HCl (Hydralazine 20 Mg/Ml Vial) 10 mg IV Q4H PRN PRN PRN Reason: SBP > 160 Sodium Chloride () 250 mls @ 15 mls/hr IV .[id number] PRN PRN Reason: Saline Flush Sodium Chloride () 250 mls @ 15 mls/hr IV .[id number] PRN PRN Reason: Additional IVPB Infusion Loperamide HCl (Loperamide 2 Mg Capsule) 2 mg PO Q2H PRN PRN PRN Reason: DIARRHEA/LOOSE STOOLS Miscellaneous Information (Inhaler, Assist Devices 1 Each Spacer) 1 each INHALATION PRN PRN PRN Reason: WITH ALBUTEROL INHALER Nitroglycerin (Nitroglycerin (Inpatient Use) 0.4 Mg Tab.Subl) 0.4 mg SUBLINGUAL Q5M PRN PRN Reason: CARDIAC/CHEST PAIN Ondansetron HCl (Ondansetron 4 Mg/2 Ml Vial) 4 mg IV Q8H PRN PRN PRN Reason: NAUSEA/VOMITING Prochlorperazine Edisylate (Prochlorperazine 10 Mg/2 Ml Vial) 5 mg IV Q4H PRN PRN PRN Reason: Breakthrough Nausea/Vomiting Sodium Chloride (0.9% Saline Lock 10 Ml Syringe) 10 - 40 ml IV UD PRN PRN Reason: SALINE FLUSH Throat Lozenges (Benzocaine/Menthol 1 Lozenge) 1 lozenge MUCOUS MEM Q2H PRN PRN PRN Reason: SORE THROAT STROKE Vital Signs/Narrative: Vital Signs Temp Pulse Resp BP Pulse Ox 03/21/20 06:00 83 18 95/58 L 90 03/21/20 05:00 68 26 H 111/88 H 95 03/21/20 04:00 99.1 F 74 24 H 127/76 H 94 03/21/20 03:41 73 Medical Necessity - Tobacco Use Smoking Status: Never smoker Tobacco Use: Non-smoker Assessment/Plan All Active Problems COVID-19 (Acute) Septic shock (Acute) Acute respiratory failure with hypoxia (Acute) Elevated LFTs (Acute) Hyperglycemia (Acute) VINNY (acute kidney injury) (Acute) Patient is a 69-year-old gentleman diagnosed with COVID-19 infection 10 days prior to this admission who presented to the emergency department with progressive shortness of breath 1. Acute hypoxic respiratory failure ?Secondary to COVID-19 pneumonitis patient was found to have significant markers of inflammation including elevated lactic acid ferritin and D-dimer. Patient admitted to the safe care unit started on noninvasive ventilation (BiPAP) with consultation placed to both infectious disease and pulmonary medicine. Patient was started on Decadron decision to start remdesivir or convalescent plasma deferred 2. . Acute kidney injury Patient being resuscitated with IV fluid with subsequent monitoring of electrolyte kidney; function back to baseline 3. Hyperglycemia -Consistent with diabetes mellitus type 2. Patient hemoglobin A1c on admission was 6.8 patient placed on insulin sliding scale and consultation placed to 4. Acute transaminitis ?Attributed to patient underlying viral infection; daily hepatic function test ordered 5. DVT prophylaxis ?Lovenox Clinical Impression(s) from Imaging Studies Chest X-Ray 03/20/20 20:35 IMPRESSION: Findings consistent with Covid 19 pneumonia more severe on the left Electronically Signed: Alirio Soria MD at 20:56 EST , Service support , Chest CTA 03/20/20 21:33 IMPRESSION: 1. No evidence of pulmonary embolus. 2. No aortic dissection or aneurysm. 3. Groundglass infiltrates with bibasilar consolidation suggestive of COVID 19 pneumonia. 4. Calcified granulomata within the spleen. Electronically Signed: Jose G Cardoso DO at 23:46 EST Tel [phone], Service support , Inpatient E&M: [id number] [facility] [id number]
[2020-03-21] MEDS: dexAMETHasone 10 MG/ML Vial 6 MG IV (08:29)
[2020-03-21] MEDS: Famotidine 20 MG Tablet PO ×2 (08:29→21:31)
[2020-03-21 08:30] LABS: Hemoglobin A1c 6.8 % (3.8-5.6)
[2020-03-21 09:37] LABS: BNP,B-Type NATRIURETIC PEPTIDE 18.8 pg/mL (0-100)
--- NOTE | 2020-03-21 09:54 | NT.THERAPY_ITS ---
Nutrition Therapy Report - History Nutrition Services has been consulted to:: Manage nutrient details of diet order Current diet / nutrition support order:: NPO - Anthropometric Measurements Height:: 6 ft Weight:: 95.1 kg Body Mass Index (BMI):: 28.4 - Relevant Labs Relevant Labs:: Hgb 16.8 g/dL (13.0-16.5) H 03/20/20 19:50 Immature Gran % (Auto) 1.900 % (0.0-0.9) H 03/21/20 05:00 Neut % (Auto) 74.5 % (47-70) H 03/21/20 05:00 Lymph % (Auto) 15.1 % (19-41) L 03/21/20 05:00 [place] % (Auto) 10.6 % (0-10) H 03/20/20 19:50 D-Dimer Quant (PE/DVT) 2.70 FEU/ug/m (0.27-0.49) H* 03/21/20 05:00 Sodium 135 mmol/L (136-145) L 03/21/20 05:00 Carbon Dioxide 20.0 mmol/L (21.0-32.0) L 03/20/20 19:50 BUN 26 mg/dL (7-18) H 03/21/20 05:00 Creatinine 1.35 mg/dL (0.70-1.30) H 03/20/20 19:50 Est GFR (MDRD) Non-Af 56 mL/min (>60) L 03/20/20 19:50 BUN/Creatinine Ratio 33.0 RATIO (10-20) H 03/21/20 05:00 Glucose 201 mg/dL (74-106) H 03/21/20 05:00 Hemoglobin A1c 6.8 % (3.8-5.6) H 03/21/20 05:00 Lactic Acid 5.9 mmol/L (0.4-1.9) H* 03/20/20 19:50 Calcium 7.2 mg/dL (8.5-10.1) L 03/21/20 05:00 Ferritin 1809 ng/mL (26-388) H 03/21/20 05:00 AST 64 U/L (15-37) H 03/21/20 05:00 ALT 82 U/L (16-61) H 03/21/20 05:00 Lactate Dehydrogenase 678 U/L (87-241) H 03/20/20 19:50 C-React Prot Ext Range 83.60 mg/L (0.0-3.0) H 03/21/20 05:00 Albumin 2.2 g/dL (3.2-5.0) L 03/21/20 05:00 Globulin 4.5 g/dL (2.2-4.2) H 03/21/20 05:00 Albumin/Globulin Ratio 0.5 RATIO (0.9-2.4) L 03/21/20 05:00 Procalcitonin 0.21 ng/mL (0.00-0.09) H 03/21/20 05:00 - Assessment Food / Nutrition-Related History:: Discussed in ICU rounds. Pt currently NPO on bipap. Unable to reach by phone- currently in isolation d/t COVID-19. 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 UBW 220# and CBW 209.7#-10.3#/4.6% wt loss, significant for acute malnutrition. No reported PMH; noted elevated A1C and hyperglycemia currently- on steroid. - Nutrition Diagnosis Problem / Etiology / Signs & Symptoms (PES):: Pt w/ severe, acute malnutrition r/t inadequate energy intake w/ acute COVID-19 illness as evidenced by 10.3#/4.6% wt loss x 1 week, estimated PO intake meeting less than 50% of pt's estimated nutritional needs x 1 week. Evidence of Malnutrition Exists:: Yes Severe PCM:: Acute Illness - Nutrition Intervention Nutrition Prescription:: [id number] calories, 85-95 g protein - Food / Nutrient Delivery Interventions Summary of nutrition intervention:: Will monitor ability to resume PO diet and provide ONS/fortified foods as indicated. Nutrition support ordered as / adjusted to:: regular diet, 120mL ensure enlive when PO intake appropriate. - MNT Monitoring Further MNT monitoring and evaluation required?: Yes MNT Follow-up in:: 3-5 days
--- NOTE | 2020-03-21 09:56 | CASEMGMT ---
RN CM Assessment Note Introduced role of CM to patient's . Demographics, PCP verified. Patient is on high flow oxygen. RN CM assessment deferred to . Per , patient is independent at home, does not use ambulatory DME or oxygen and no care needs prior to admission. -family/friends are able to bring groceries, etc while in quarantine. - and patient are able to quarantine @ home. Diagnosis: COVID 19 PCP: ALECIA Luna Specialists: none Insurance: MMO Preferred Pharmacy: [facility] Pres[facility] Benefit: yes LNOK: , Jason Smith (currently patient on MS2). No other listing for NOK Living Arrangements: Lives independently at home with his . No care needs prior to admission Tranportation: drives DME: none. If home oxygen is needed, any [facility] local provider is acceptable. DME choices reviewed with . [facility] oxygen providers with MMO: [facility] HHC: none SNF: none Patient DC Goals: Home DC Plan: TBD. Recommend oxygen testing at rest and with activity prior to discharge. CM available for discharge planning coordination. Contact CM for any concerns/needs that may arise. Santiago PLUMMERN RN ACM
--- NOTE | 2020-03-21 11:12 | PCM.HP.ID ---
Problem List (1) COVID-19 Status: Acute Reason for Consult: covid Consulted by: Dr. Steward History of Present Illness: The patient is a 69 year old M presented with sx starting 03/19 with aches, mild headache, some cough, developed progressive dyspnea. also sick, admitted to [facility] now. Started on bipap, dex, full dose lovenox, admitted to icu. Feeling a little better today. Full ROS performed and neg except as noted above. - Medical History Surgical History: reviewed Allergies/Adverse Reactions: Allergies Penicillins [PCN] Adverse Reaction (Verified 03/20/20 19:35) Swelling Home Medications: Ambulatory Orders Medication Instructions Recorded NK 03/20/20 - Social History Tobacco Use: non-smoker Vital Signs Temp Pulse Resp BP Pulse Ox 97.5 F L 73 18 128/82 H 96 03/21/20 08:00 03/21/20 10:00 03/21/20 10:00 03/21/20 10:00 03/21/20 10:00 Oxygen Delivery Method Bi-pap Weight: 95.1 kg Body Mass Index (BMI) 28.4 Microbiology Past 72 Hours 03/21/20 00:00 Respiratory Panel (PCR) - Final Mucosa - Nasopharyngeal Laboratory Tests Past 24 Hrs 03/20/20 03/20/20 03/20/20 19:50 19:50 19:50 WBC 10.6 RBC 5.41 Hgb 16.8 H Hct 50.1 MCV 92.6 MCH 31.1 MCHC 33.5 RDW Std Deviation 42.9 RDW Coeff of Carol 12.6 Plt Count 364 MPV 10.0 Immature Gran % (Auto) 1.500 H Neut % (Auto) 64.4 Lymph % (Auto) 22.9 [place] % (Auto) 10.6 H Eos % (Auto) 0.0 Baso % (Auto) 0.6 Absolute Neuts (auto) 6.8 Absolute Lymphs (auto) 2.43 Nucleated RBC % 0 Differential Comment Reactive Lymphocytes 1+ D-Dimer Quant (PE/DVT) 3.20 H* Specimen Type Sample Site pH Bicarbonate Actual Total CO2 Base Excess O2 Saturation O2 % ABG pCO2 ABG pO2 Chang Test Respiration Rate O2 Delivery Device POC PEEP Sodium 134 L Potassium 3.7 Chloride 100 Carbon Dioxide 20.0 L Anion Gap 14 BUN 25 H Creatinine 1.35 H Estim Creat Clear Calc 56.68 Est GFR (MDRD) Af Amer 67 Est GFR (MDRD) Non-Af 56 L BUN/Creatinine Ratio 18.5 Glucose 190 H Hemoglobin A1c Lactic Acid Calcium 8.0 L Magnesium Ferritin Total Bilirubin 0.80 AST 90 H ALT 102 H Alkaline Phosphatase 104 Lactate Dehydrogenase Troponin I < 0.015 C-React Prot Ext Range B-Natriuretic Peptide Total Protein 8.2 Albumin 2.8 L Globulin 5.4 H Albumin/Globulin Ratio 0.5 L Procalcitonin Blood Type Antibody Screen 03/20/20 03/20/20 03/20/20 19:50 19:50 19:50 WBC RBC Hgb Hct MCV MCH MCHC RDW Std Deviation RDW Coeff of Carol Plt Count MPV Immature Gran % (Auto) Neut % (Auto) Lymph % (Auto) [place] % (Auto) Eos % (Auto) Baso % (Auto) Absolute Neuts (auto) Absolute Lymphs (auto) Nucleated RBC % Differential Comment Reactive Lymphocytes D-Dimer Quant (PE/DVT) Specimen Type Sample Site pH Bicarbonate Actual Total CO2 Base Excess O2 Saturation O2 % ABG pCO2 ABG pO2 Chang Test Respiration Rate O2 Delivery Device POC PEEP Sodium Potassium Chloride Carbon Dioxide Anion Gap BUN Creatinine Estim Creat Clear Calc Est GFR (MDRD) Af Amer Est GFR (MDRD) Non-Af BUN/Creatinine Ratio Glucose Hemoglobin A1c Lactic Acid 5.9 H* Calcium Magnesium 2.4 Ferritin 1957 H Total Bilirubin AST ALT Alkaline Phosphatase Lactate Dehydrogenase 678 H Troponin I C-React Prot Ext Range 81.50 H B-Natriuretic Peptide Total Protein Albumin Globulin Albumin/Globulin Ratio Procalcitonin 0.19 H Blood Type Antibody Screen 03/20/20 03/20/20 03/20/20 20:27 23:25 23:35 WBC RBC Hgb Hct MCV MCH MCHC RDW Std Deviation RDW Coeff of Carol Plt Count MPV Immature Gran % (Auto) Neut % (Auto) Lymph % (Auto) [place] % (Auto) Eos % (Auto) Baso % (Auto) Absolute Neuts (auto) Absolute Lymphs (auto) Nucleated RBC % Differential Comment Reactive Lymphocytes D-Dimer Quant (PE/DVT) Specimen Type ART Sample Site L Radial pH 7.48 H Bicarbonate Actual 16.1 L Total CO2 17 Base Excess -8 L O2 Saturation 97 O2 % 100 ABG pCO2 21.9 L ABG pO2 82 Chang Test Positive Respiration Rate 12 O2 Delivery Device BiPAP POC PEEP 10 Sodium Potassium Chloride Carbon Dioxide Anion Gap BUN Creatinine Estim Creat Clear Calc Est GFR (MDRD) Af Amer Est GFR (MDRD) Non-Af BUN/Creatinine Ratio Glucose Hemoglobin A1c Lactic Acid 1.9 Calcium Magnesium Ferritin Total Bilirubin AST ALT Alkaline Phosphatase Lactate Dehydrogenase Troponin I C-React Prot Ext Range B-Natriuretic Peptide Total Protein Albumin Globulin Albumin/Globulin Ratio Procalcitonin Blood Type A POSITIVE Antibody Screen NEGATIVE 03/21/20 03/21/20 03/21/20 03:00 05:00 05:00 WBC RBC Hgb Hct MCV MCH MCHC RDW Std Deviation RDW Coeff of Carol Plt Count MPV Immature Gran % (Auto) Neut % (Auto) Lymph % (Auto) [place] % (Auto) Eos % (Auto) Baso % (Auto) Absolute Neuts (auto) Absolute Lymphs (auto) Nucleated RBC % Differential Comment Reactive Lymphocytes D-Dimer Quant (PE/DVT) 2.70 H* Specimen Type Sample Site pH Bicarbonate Actual Total CO2 Base Excess O2 Saturation O2 % ABG pCO2 ABG pO2 Chang Test Respiration Rate O2 Delivery Device POC PEEP Sodium Potassium Chloride Carbon Dioxide Anion Gap BUN Creatinine Estim Creat Clear Calc Est GFR (MDRD) Af Amer Est GFR (MDRD) Non-Af BUN/Creatinine Ratio Glucose Hemoglobin A1c 6.8 H Lactic Acid Calcium Magnesium Ferritin Total Bilirubin AST ALT Alkaline Phosphatase Lactate Dehydrogenase Troponin I C-React Prot Ext Range B-Natriuretic Peptide 18.8 Total Protein Albumin Globulin Albumin/Globulin Ratio Procalcitonin Blood Type Antibody Screen 03/21/20 03/21/20 03/21/20 05:00 05:00 05:00 WBC 6.9 RBC 4.73 Hgb 14.5 Hct 43.0 MCV 90.9 MCH 30.7 MCHC 33.7 RDW Std Deviation 41.1 RDW Coeff of Carol 12.3 Plt Count 300 MPV 9.5 Immature Gran % (Auto) 1.900 H Neut % (Auto) 74.5 H Lymph % (Auto) 15.1 L [place] % (Auto) 7.8 Eos % (Auto) 0.0 Baso % (Auto) 0.7 Absolute Neuts (auto) 5.2 Absolute Lymphs (auto) 1.04 Nucleated RBC % 0 Differential Comment SCANNED Reactive Lymphocytes D-Dimer Quant (PE/DVT) Specimen Type Sample Site pH Bicarbonate Actual Total CO2 Base Excess O2 Saturation O2 % ABG pCO2 ABG pO2 Chang Test Respiration Rate O2 Delivery Device POC PEEP Sodium 135 L Potassium 4.3 Chloride 106 Carbon Dioxide 21.0 Anion Gap 8 BUN 26 H Creatinine 0.79 Estim Creat Clear Calc 76.52 Est GFR (MDRD) Af Amer 126 Est GFR (MDRD) Non-Af 104 BUN/Creatinine Ratio 33.0 H Glucose 201 H Hemoglobin A1c Lactic Acid Calcium 7.2 L Magnesium Ferritin 1809 H Total Bilirubin 0.50 AST 64 H ALT 82 H Alkaline Phosphatase 80 Lactate Dehydrogenase Troponin I C-React Prot Ext Range 83.60 H B-Natriuretic Peptide Total Protein 6.7 Albumin 2.2 L Globulin 4.5 H Albumin/Globulin Ratio 0.5 L Procalcitonin 0.21 H Blood Type Antibody Screen - Other Studies Radiology: [] reviewed Other Studies: [] Route of nutrition/ use of supplements: [] Nutritional Intake: [] IV Site: [] Douglass Catheter: [] - Physical Exam General: Alert, Oriented x3, Cooperative, No apparent distress HEENT: Atraumatic, PERRLA, EOMI Neck: Supple, No Nodes Lungs: Diminished Cardiovascular: Regular rate, Regular Rhythm Abdomen: Soft, Non Tender, Non-Distended Extremities: No edema Skin: No rashes IV Site: Peripheral, without redness Musculoskeletal: No Tenderness to Palpation of Joints or Extremities Neurological: Cranial nerves II-XII grossly intact - Assessment/Plan Antibiotics: [] Assessment/Plan: [] Active and Suspected Problems COVID-19 (Acute) Septic shock (Acute) Acute respiratory failure with hypoxia (Acute) Elevated LFTs (Acute) Hyperglycemia (Acute) VINNY (acute kidney injury) (Acute) covid with severe sepsis, hypoxia - Sx started 03/19. VINNY improved, on 80% bipap. PCT 0.2. D-dimer 3.[address] neg for PE. Cont dex, will start remdesivir. also sick with covid. Will follow, thank you, d/w Dr. Kline
[2020-03-21] MEDS: Enoxaparin 100 MG/ML Syringe 90 MG SC ×2 (12:08→21:31)
--- NOTE | 2020-03-21 20:26 | NURSING ---
Pt in bed c/o belly cramps and asking what are we going to do about these? Pt on 15lpm Hi-flow NC and O2 sats are 91%, pt assisted up to BSC; gait steady w/MOHAN. Once seated on BSC, pt O2 sat dropped to 69% very quickly;BiPAP brought over to BSC and mask applied, FiO2 increased to 100% for recovery assistance. FiO2 weaned down as able to 80%. Pt assisted back to bed and settled, FiO2 returned to previous setting of 70%. Pt denies pain, only c/o being winded. P.ox 92% and no SOB after returning to bed. Call light within reach. Pt did have mod volume of diarrhea stool mixed w/urine.
[2020-03-21] MEDS: Loperamide 2 MG Capsule PO ×2 (21:31→23:23)
--- NOTE | 2020-03-21 22:06 | NURSING ---
HS meds given, while talking,had a sm episode of bronchospasm and HR spiked up to 152 ST; pt denied feeling any CP or SOB while tachy. HR quickly normalized after. HS care provided. Larger BiPAP mask fitted to pt as per request and Airvo removed for sleep. Pt justin all care well.
--- NOTE | 2020-03-21 22:49 | NURSING ---
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 Pressure monitor outside of room reads Negative Normal and no alarms are listed.
[2020-03-21] MEDS: Phenylephrine 0.25%/Cocoa Btr 1 Rectal Supp 1 SUPP RC (23:23)
[2020-03-22] VITALS (35 sets, daily range): BP systolic 110–163; BP diastolic 56–81; PULSE 64–98; RESP 12–26; TEMP 36.3–37.7; O2SAT 88–96
[2020-03-22 04:15] LABS: Hematocrit 43.7 % (40-54); Hemoglobin 14.7 g/dL (13.0-16.5); Mean Corp Hgb Conc 33.6 g/dL (32-36); Mean Corpuscular Hgb 30.9 pg (27.0-32.0); Mean Platelet Vol. 9.7 fl (6.2-12.0); Platelet Count 341 K/mm3 (150-450); RBC Distribution Width CV 12.4 % (11.6-14.6); RBC Distribution Width SD 42.5 fl (35.1-43.9); Red Blood Count 4.75 M/mm3 (4.6-6.2); White Blood Count 10.6 K/mm3 (4.4-11.0)
[2020-03-22 04:27] LABS: ALB/GLOB Ratio 0.5 RATIO (0.9-2.4); AST(SGOT) 42 U/L (15-37); Alanine Aminotransfer ALT/SGPT 64 U/L (16-61); Albumin, Serum 2.1 g/dL (3.2-5.0); Alkaline Phosphatase 70 U/L (45-117); Anion Gap 6 (5-15); BUN 22 mg/dL (7-18); BUN/Creat Ratio 33.7 RATIO (10-20); Calcium,Total 7.4 mg/dL (8.5-10.1); Chloride 111 mmol/L (98-107); Creatinine, Serum 0.65 mg/dL (0.70-1.30); EST Glomerular Filtration Rate 129 mL/min (>60); Est Glom Filt Rate - Afr Amer 156 mL/min (>60); Estimated Creatinine Clearance 76.52 ml/min; Globulin 4.1 g/dL (2.2-4.2); Glucose 129 mg/dL (74-106); Protein, Total 6.2 g/dL (6.4-8.2); Sodium Level 140 mmol/L (136-145)
--- NOTE | 2020-03-22 06:49 | PN_ITS ---
Subjective: The patient was seen and examined at the bedside this morning. Events from the last 24 hours have been reviewed. The patient is currently afebrile, hemodynamically stable and maintaining appropriate oxygen saturations on Airvo heated high flow with a high FiO2 requirement. Liver and renal function are stable. The patient remains on therapeutic Lovenox, Decadron and remdesivir. Although the patient does report some symptom improvement today, he does report the continued presence of a nonproductive cough. Objective: The patient's most recent lab work, culture data and imaging studies have all been personally reviewed. General: Alert, Cooperative, No apparent distress HEENT: Atraumatic, Normocephalic Oral: No Gingival or Mucosal Lesions/ Ulcerations Neck: Supple Lungs: No rhonchi, No wheeze, No rales, Diminished Cardiovascular: Regular rate, Regular Rhythm Abdomen: Bowel Sounds Present, Soft, Non Tender Extremities: No clubbing, No cyanosis, No edema Skin: No breakdown Musculoskeletal: No Tenderness to Palpation of Joints or Extremities, No Muscle Wasting Lymphatic: No Cervical, Supraclavicular, or Inguinal Adenopathy Neurological: Cranial nerves II-XII grossly intact, Neuro grossly intact Psych/Mental Status: Alert and oriented to time, place, person, mood and affect Vital Signs Temp Pulse Resp BP Pulse Ox 98.3 F 75 17 118/63 92 03/22/20 04:00 03/22/20 06:00 03/22/20 06:00 03/22/20 06:00 03/22/20 06:00 Oxygen Flow Rate (L/min) 60 Oxygen Delivery Method Airvo Weight: 209 lb 3.499 oz Body Mass Index (BMI) 28.4 Intake and Output for Last 24 Hours 03/20/20 03/21/20 03/22/20 23:59 23:59 23:59 Intake Total 1613.33 / 1613.33 350 / 350 Output Total 1675 / 1675 325 / 325 Balance -61.67 / -61.67 25 / 25 Labs (Last 48 Hours) 03/20/20 03/20/20 03/20/20 19:50 19:50 19:50 WBC 10.6 RBC 5.41 Hgb 16.8 H Hct 50.1 MCV 92.6 MCH 31.1 MCHC 33.5 RDW Std Deviation 42.9 RDW Coeff of Carol 12.6 Plt Count 364 MPV 10.0 Immature Gran % (Auto) 1.500 H Neut % (Auto) 64.4 Lymph % (Auto) 22.9 [place] % (Auto) 10.6 H Eos % (Auto) 0.0 Baso % (Auto) 0.6 Absolute Neuts (auto) 6.8 Absolute Lymphs (auto) 2.43 Nucleated RBC % 0 Differential Comment Reactive Lymphocytes 1+ D-Dimer Quant (PE/DVT) 3.20 H* Specimen Type Sample Site pH Bicarbonate Actual Total CO2 Base Excess O2 Saturation O2 % ABG pCO2 ABG pO2 Chang Test Respiration Rate O2 Delivery Device POC PEEP Sodium 134 L Potassium 3.7 Chloride 100 Carbon Dioxide 20.0 L Anion Gap 14 BUN 25 H Creatinine 1.35 H Estim Creat Clear Calc 56.68 Est GFR (MDRD) Af Amer 67 Est GFR (MDRD) Non-Af 56 L BUN/Creatinine Ratio 18.5 Glucose 190 H Hemoglobin A1c Lactic Acid Calcium 8.0 L Magnesium Ferritin Total Bilirubin 0.80 AST 90 H ALT 102 H Alkaline Phosphatase 104 Lactate Dehydrogenase Troponin I < 0.015 C-React Prot Ext Range B-Natriuretic Peptide Total Protein 8.2 Albumin 2.8 L Globulin 5.4 H Albumin/Globulin Ratio 0.5 L Procalcitonin Blood Type Antibody Screen 03/20/20 03/20/20 03/20/20 19:50 19:50 19:50 WBC RBC Hgb Hct MCV MCH MCHC RDW Std Deviation RDW Coeff of Carol Plt Count MPV Immature Gran % (Auto) Neut % (Auto) Lymph % (Auto) [place] % (Auto) Eos % (Auto) Baso % (Auto) Absolute Neuts (auto) Absolute Lymphs (auto) Nucleated RBC % Differential Comment Reactive Lymphocytes D-Dimer Quant (PE/DVT) Specimen Type Sample Site pH Bicarbonate Actual Total CO2 Base Excess O2 Saturation O2 % ABG pCO2 ABG pO2 Chang Test Respiration Rate O2 Delivery Device POC PEEP Sodium Potassium Chloride Carbon Dioxide Anion Gap BUN Creatinine Estim Creat Clear Calc Est GFR (MDRD) Af Amer Est GFR (MDRD) Non-Af BUN/Creatinine Ratio Glucose Hemoglobin A1c Lactic Acid 5.9 H* Calcium Magnesium 2.4 Ferritin 1957 H Total Bilirubin AST ALT Alkaline Phosphatase Lactate Dehydrogenase 678 H Troponin I C-React Prot Ext Range 81.50 H B-Natriuretic Peptide Total Protein Albumin Globulin Albumin/Globulin Ratio Procalcitonin 0.19 H Blood Type Antibody Screen 03/20/20 03/20/20 03/20/20 20:27 23:25 23:35 WBC RBC Hgb Hct MCV MCH MCHC RDW Std Deviation RDW Coeff of Carol Plt Count MPV Immature Gran % (Auto) Neut % (Auto) Lymph % (Auto) [place] % (Auto) Eos % (Auto) Baso % (Auto) Absolute Neuts (auto) Absolute Lymphs (auto) Nucleated RBC % Differential Comment Reactive Lymphocytes D-Dimer Quant (PE/DVT) Specimen Type ART Sample Site L Radial pH 7.48 H Bicarbonate Actual 16.1 L Total CO2 17 Base Excess -8 L O2 Saturation 97 O2 % 100 ABG pCO2 21.9 L ABG pO2 82 Chang Test Positive Respiration Rate 12 O2 Delivery Device BiPAP POC PEEP 10 Sodium Potassium Chloride Carbon Dioxide Anion Gap BUN Creatinine Estim Creat Clear Calc Est GFR (MDRD) Af Amer Est GFR (MDRD) Non-Af BUN/Creatinine Ratio Glucose Hemoglobin A1c Lactic Acid 1.9 Calcium Magnesium Ferritin Total Bilirubin AST ALT Alkaline Phosphatase Lactate Dehydrogenase Troponin I C-React Prot Ext Range B-Natriuretic Peptide Total Protein Albumin Globulin Albumin/Globulin Ratio Procalcitonin Blood Type A POSITIVE Antibody Screen NEGATIVE 03/21/20 03/21/20 03/21/20 03:00 05:00 05:00 WBC RBC Hgb Hct MCV MCH MCHC RDW Std Deviation RDW Coeff of Carol Plt Count MPV Immature Gran % (Auto) Neut % (Auto) Lymph % (Auto) [place] % (Auto) Eos % (Auto) Baso % (Auto) Absolute Neuts (auto) Absolute Lymphs (auto) Nucleated RBC % Differential Comment Reactive Lymphocytes D-Dimer Quant (PE/DVT) 2.70 H* Specimen Type Sample Site pH Bicarbonate Actual Total CO2 Base Excess O2 Saturation O2 % ABG pCO2 ABG pO2 Chang Test Respiration Rate O2 Delivery Device POC PEEP Sodium Potassium Chloride Carbon Dioxide Anion Gap BUN Creatinine Estim Creat Clear Calc Est GFR (MDRD) Af Amer Est GFR (MDRD) Non-Af BUN/Creatinine Ratio Glucose Hemoglobin A1c 6.8 H Lactic Acid Calcium Magnesium Ferritin Total Bilirubin AST ALT Alkaline Phosphatase Lactate Dehydrogenase Troponin I C-React Prot Ext Range B-Natriuretic Peptide 18.8 Total Protein Albumin Globulin Albumin/Globulin Ratio Procalcitonin Blood Type Antibody Screen 03/21/20 03/21/20 03/21/20 05:00 05:00 05:00 WBC 6.9 RBC 4.73 Hgb 14.5 Hct 43.0 MCV 90.9 MCH 30.7 MCHC 33.7 RDW Std Deviation 41.1 RDW Coeff of Carol 12.3 Plt Count 300 MPV 9.5 Immature Gran % (Auto) 1.900 H Neut % (Auto) 74.5 H Lymph % (Auto) 15.1 L [place] % (Auto) 7.8 Eos % (Auto) 0.0 Baso % (Auto) 0.7 Absolute Neuts (auto) 5.2 Absolute Lymphs (auto) 1.04 Nucleated RBC % 0 Differential Comment SCANNED Reactive Lymphocytes D-Dimer Quant (PE/DVT) Specimen Type Sample Site pH Bicarbonate Actual Total CO2 Base Excess O2 Saturation O2 % ABG pCO2 ABG pO2 Chang Test Respiration Rate O2 Delivery Device POC PEEP Sodium 135 L Potassium 4.3 Chloride 106 Carbon Dioxide 21.0 Anion Gap 8 BUN 26 H Creatinine 0.79 Estim Creat Clear Calc 76.52 Est GFR (MDRD) Af Amer 126 Est GFR (MDRD) Non-Af 104 BUN/Creatinine Ratio 33.0 H Glucose 201 H Hemoglobin A1c Lactic Acid Calcium 7.2 L Magnesium Ferritin 1809 H Total Bilirubin 0.50 AST 64 H ALT 82 H Alkaline Phosphatase 80 Lactate Dehydrogenase Troponin I C-React Prot Ext Range 83.60 H B-Natriuretic Peptide Total Protein 6.7 Albumin 2.2 L Globulin 4.5 H Albumin/Globulin Ratio 0.5 L Procalcitonin 0.21 H Blood Type Antibody Screen 03/22/20 03/22/20 04:00 04:00 WBC 10.6 RBC 4.75 Hgb 14.7 Hct 43.7 MCV 92.0 MCH 30.9 MCHC 33.6 RDW Std Deviation 42.5 RDW Coeff of Carol 12.4 Plt Count 341 MPV 9.7 Immature Gran % (Auto) Neut % (Auto) Lymph % (Auto) [place] % (Auto) Eos % (Auto) Baso % (Auto) Absolute Neuts (auto) Absolute Lymphs (auto) Nucleated RBC % Differential Comment Reactive Lymphocytes D-Dimer Quant (PE/DVT) Specimen Type Sample Site pH Bicarbonate Actual Total CO2 Base Excess O2 Saturation O2 % ABG pCO2 ABG pO2 Chang Test Respiration Rate O2 Delivery Device POC PEEP Sodium 140 Potassium 4.0 Chloride 111 H Carbon Dioxide 23.0 Anion Gap 6 BUN 22 H Creatinine 0.65 L Estim Creat Clear Calc 76.52 Est GFR (MDRD) Af Amer 156 Est GFR (MDRD) Non-Af 129 BUN/Creatinine Ratio 33.7 H Glucose 129 H Hemoglobin A1c Lactic Acid Calcium 7.4 L Magnesium Ferritin Total Bilirubin 0.40 AST 42 H ALT 64 H Alkaline Phosphatase 70 Lactate Dehydrogenase Troponin I C-React Prot Ext Range B-Natriuretic Peptide Total Protein 6.2 L Albumin 2.1 L Globulin 4.1 Albumin/Globulin Ratio 0.5 L Procalcitonin Blood Type Antibody Screen Microbiology 03/21/20 00:00 Mucosa - Nasopharyngeal Respiratory Panel (PCR) - Final Clinical Impression(s) from Imaging Studies Chest X-Ray 03/20/20 20:35 IMPRESSION: Findings consistent with Covid 19 pneumonia more severe on the left Electronically Signed: Alirio Soria MD at 20:56 EST , Service support , Chest CTA 03/20/20 21:33 IMPRESSION: 1. No evidence of pulmonary embolus. 2. No aortic dissection or aneurysm. 3. Groundglass infiltrates with bibasilar consolidation suggestive of COVID 19 pneumonia. 4. Calcified granulomata within the spleen. Electronically Signed: Jose G Cardoso DO at 23:46 EST Tel [phone], Service support , Medical Necessity - Tobacco Use Smoking Status: Never smoker Tobacco Use: Non-smoker Assessment/Plan All Active Problems COVID-19 (Acute) Septic shock (Acute) Acute respiratory failure with hypoxia (Acute) Elevated LFTs (Acute) Hyperglycemia (Acute) VINNY (acute kidney injury) (Acute) RECOMMENDATIONS: 1. Continue Airvo heated high flow/BIPAP and wean FiO2 to maintain saturations at or above 90%. 2. Continue Decadron 6 mg daily x10 days. 3. Continue remdesivir and monitor liver and renal function closely. 4. Continue therapeutic Lovenox. 5. Encourage incentive spirometer use. IMPRESSIONS: 1. Acute hypoxemic respiratory failure secondary to COVID-19 pneumonia In total, the patient has had symptoms now for approximately 2 weeks. D-dimer was elevated on presentation without PE identified on CTA chest. However, given the patient's tenuous respiratory status and elevated D-dimer level, will continue therapeutic Lovenox for now. The patient has already been started on Decadron 6 mg daily, which will be continued. The patient will also be continued on remdesivir, pain close attention to his liver and renal function. Continue to wean FiO2 to maintain oxygen saturations at or above 90%. Encourage incentive spirometer use and mobilize patient as tolerated. 2. Acute kidney injury Resolved. Likely prerenal in etiology. Improvement was noted with gentle IV fluid hydration. Continue to monitor urine output. No current indication for renal replacement therapy. This note was generated with Pocketbook dictation software. It may contain incorrect words, spelling, and punctuation that were not noted in checking the note before signing. Inpatient E&M: 20640 Subs Hosp L3
--- NOTE | 2020-03-22 07:25 | PCM.PN.HOSP ---
Patient Problems: Active and Suspected Problems COVID-19 (Acute) Septic shock (Acute) Acute respiratory failure with hypoxia (Acute) Elevated LFTs (Acute) Hyperglycemia (Acute) VINNY (acute kidney injury) (Acute) Reason for Visit: Acute hypoxic respiratory failure secondary to COVID-19 pneumonitis Subjective: Patient is a 69-year-old gentleman diagnosed with COVID-19 infection 10 days prior to this admission who presented to the emergency department with progressive shortness of breath 03/22/2020; patient was transitioned from BiPAP to Airvo; the patient had to be placed back on BiPAP due to significant hypoxia. Was also started on remdesivir by infectious disease the day prior Objective: GENERAL: Patient on BiPAP HEENT: Atraumatic; EYES; Anicteric, Normal Conjunctiva NECK; supple, normal thyroid, RESPIRATORY: Diminished to auscultation CARDIOVASCULAR: Regular S1 S2, GI: soft, normoactive bowel sounds, : No Renal angle tenderness; EXTREMITIES: No edema, no clubbing, MUSCULOSKELETAL: no muscle waisting NEURO: Awake; no lateralizing signs. SKIN: No Rash PSYCH; Flat affect Vitals/I&O's: Vital Signs Temp Pulse Resp BP Pulse Ox 98.3 F 86 22 H 131/64 H 88 03/22/20 04:00 03/22/20 07:00 03/22/20 07:00 03/22/20 07:00 03/22/20 07:00 Oxygen Flow Rate (L/min) 60 Oxygen Delivery Method Airvo Weight: 94.9 kg Body Mass Index (BMI) 28.4 Intake and Output for Last 24 Hours 03/20/20 03/21/20 03/22/20 23:59 23:59 23:59 Intake Total 1613.33 / 1613.33 350 / 350 Output Total 1675 / 1675 325 / 325 Balance -61.67 / -61.67 25 / 25 Microbiology Past 72 Hours 03/21/20 00:00 Mucosa - Nasopharyngeal Respiratory Panel (PCR) - Final Laboratory Results 03/21/20 03:00: B-Natriuretic Peptide 18.8 03/21/20 05:00: Hemoglobin A1c 6.8 H 03/22/20 04:00: WBC 10.6, RBC 4.75, Hgb 14.7, Hct 43.7, MCV 92.0, MCH 30.9, MCHC 33.6, RDW Std Deviation 42.5, RDW Coeff of Carol 12.4, Plt Count 341, MPV 9.7 03/22/20 04:00: Sodium 140, Potassium 4.0, Chloride 111 H, Carbon Dioxide 23.0, Anion Gap 6, BUN 22 H, Creatinine 0.65 L, Estim Creat Clear Calc 76.52, Est GFR (MDRD) Af Amer 156, Est GFR (MDRD) Non-Af 129, BUN/Creatinine Ratio 33.7 H, Glucose 129 H, Calcium 7.4 L, Total Bilirubin 0.40, AST 42 H, ALT 64 H, Alkaline Phosphatase 70, Total Protein 6.2 L, Albumin 2.1 L, Globulin 4.1, Albumin/Globulin Ratio 0.5 L Current Medications Acetaminophen (Acetaminophen 650 Mg Suppository) 650 mg RECTAL Q4H PRN PRN PRN Reason: Pain Score 1-10/Temp > 100.7 F Acetaminophen (Acetaminophen 325 Mg Tablet) 650 mg PO Q6H PRN PRN PRN Reason: Pain Score 1-10/Temp > 100.7 F Al Hydroxide/Mg Hydroxide (Mag Hydrox/Al Hydrox/Simeth 30 Ml Udc) 30 ml PO Q6H PRN PRN PRN Reason: Gastric Burning Albuterol Sulfate (Albuterol Sulfate 18 Gm Inhaler (200 Puffs)) 1 puff IH Q2H PRN PRN PRN Reason: Dyspnea, wheezing Dexamethasone Sodium Phosphate (Dexamethasone 10 Mg/Ml Vial) 6 mg IV DAILY [facility] Stop: 03/30/20 10:01 Last Admin: 03/21/20 08:29 Dose: 6 mg Documented by: Enoxaparin Sodium (Enoxaparin 100 Mg/Ml Syringe) 90 mg SC Q12 [facility] Last Admin: 03/21/20 21:31 Dose: 90 mg Documented by: Famotidine (Famotidine 20 Mg Tablet) 20 mg PO BID [facility] Last Admin: 03/21/20 21:31 Dose: 20 mg Documented by: Guaifenesin (Guaifenesin 10 Ml Udc (200mg/10ml)) 10 ml PO Q4H PRN PRN PRN Reason: COUGH Hydralazine HCl (Hydralazine 20 Mg/Ml Vial) 10 mg IV Q4H PRN PRN PRN Reason: SBP > 160 Sodium Chloride () 250 mls @ 15 mls/hr IV .[id number] PRN PRN Reason: Saline Flush Sodium Chloride () 250 mls @ 15 mls/hr IV .[id number] PRN PRN Reason: Additional IVPB Infusion Remdesivir 100 mg/ Sodium (Chloride) 250 mls @ 125 mls/hr IV DAILY [facility]; Protocol Stop: 03/25/20 11:59 Loperamide HCl (Loperamide 2 Mg Capsule) 4 mg PO Q4H PRN PRN PRN Reason: Diarrhea Miscellaneous Information (Inhaler, Assist Devices 1 Each Spacer) 1 each INHALATION PRN PRN PRN Reason: WITH ALBUTEROL INHALER Nitroglycerin (Nitroglycerin (Inpatient Use) 0.4 Mg Tab.Subl) 0.4 mg SUBLINGUAL Q5M PRN PRN Reason: CARDIAC/CHEST PAIN Ondansetron HCl (Ondansetron 4 Mg/2 Ml Vial) 4 mg IV Q8H PRN PRN PRN Reason: NAUSEA/VOMITING Prochlorperazine Edisylate (Prochlorperazine 10 Mg/2 Ml Vial) 5 mg IV Q4H PRN PRN PRN Reason: Breakthrough Nausea/Vomiting Sodium Chloride (0.9% Saline Lock 10 Ml Syringe) 10 - 40 ml IV UD PRN PRN Reason: SALINE FLUSH Throat Lozenges (Benzocaine/Menthol 1 Lozenge) 1 lozenge MUCOUS MEM Q2H PRN PRN PRN Reason: SORE THROAT STROKE Vital Signs/Narrative: Vital Signs Temp Pulse Resp BP Pulse Ox 03/22/20 07:00 86 22 H 131/64 H 88 03/22/20 06:59 81 03/22/20 06:00 75 17 118/63 92 03/22/20 05:00 70 22 H 125/64 H 92 03/22/20 04:00 98.3 F 72 18 120/66 94 Medical Necessity - Tobacco Use Smoking Status: Never smoker Tobacco Use: Non-smoker Assessment/Plan All Active Problems COVID-19 (Acute) Septic shock (Acute) Acute respiratory failure with hypoxia (Acute) Elevated LFTs (Acute) Hyperglycemia (Acute) VINNY (acute kidney injury) (Acute) Patient is a 69-year-old gentleman diagnosed with COVID-19 infection 10 days prior to this admission who presented to the emergency department with progressive shortness of breath 1. Acute hypoxic respiratory failure ?Secondary to COVID-19 pneumonitis patient was found to have significant markers of inflammation including elevated lactic acid ferritin and D-dimer. Patient admitted to the safe care unit started on noninvasive ventilation (BiPAP) with consultation placed to both infectious disease and pulmonary medicine. Patient was started on Decadron decision to start remdesivir or convalescent plasma deferred -03/22/2020; 03/22/2020; patient was transitioned from BiPAP to Airvo; the patient had to be placed back on BiPAP due to significant hypoxia. Was also started on remdesivir by infectious disease the day prior 2. . Acute kidney injury Patient being resuscitated with IV fluid with subsequent monitoring of electrolyte kidney; function back to baseline 3. Hyperglycemia -Consistent with diabetes mellitus type 2. Patient hemoglobin A1c on admission was 6.8 patient placed on insulin sliding scale and consultation placed to 4. Acute transaminitis ?Attributed to patient underlying viral infection; daily hepatic function test ordered 5. DVT prophylaxis ?Lovenox Inpatient E&M: [id number] [facility] L3
[2020-03-22] MEDS: Famotidine 20 MG Tablet PO ×2 (08:07→21:38)
[2020-03-22] MEDS: Enoxaparin 100 MG/ML Syringe 90 MG SC ×2 (08:07→21:38)
[2020-03-22] MEDS: Phenylephrine 0.25%/Cocoa Btr 1 Rectal Supp 1 SUPP RC ×2 (08:07→16:00)
[2020-03-22] MEDS: Acetaminophen 325 MG Tablet 650 MG PO (08:07)
[2020-03-22] MEDS: dexAMETHasone 10 MG/ML Vial 6 MG IV (08:07)
--- NOTE | 2020-03-22 10:22 | CASEMGMT ---
RN CM Note: Participated in ICU interdisciplinary rounds. Patient required Bipapovernight and Airvo currently. Receiving Decadron, Remdesivir, Lovenox. Failed mobility, PT/OT on hold. Diet NPO. DC PLANNING: patient was independent @ home. Plan is to return on dc and will likely need oxygen. Santiago BAUTISTA RN ACM
--- NOTE | 2020-03-22 15:03 | PN.ID_ITS ---
Patient Problems: Active and Suspected Problems COVID-19 (Acute) Septic shock (Acute) Acute respiratory failure with hypoxia (Acute) Elevated LFTs (Acute) Hyperglycemia (Acute) VINNY (acute kidney injury) (Acute) Subjective: Feeling much better today, no fever, no n/v/d - Physical Exam Vitals/I&O's: Vital Signs Temp Pulse Resp BP Pulse Ox 97.7 F L 65 25 H 120/70 90 03/22/20 12:00 03/22/20 14:00 03/22/20 14:00 03/22/20 14:00 03/22/20 14:00 Oxygen Flow Rate (L/min) 60 Oxygen Delivery Method Bi-pap Weight: 94.9 kg Body Mass Index (BMI) 28.4 Intake and Output for Last 24 Hours 03/20/20 03/21/20 03/22/20 23:59 23:59 23:59 Intake Total 1613.33 / 1613.33 880 / 880 Output Total 1675 / 1675 925 / 925 Balance -61.67 / -61.67 -45 / -45 General: Alert, Cooperative, No apparent distress Lungs: Diminished Cardiovascular: Regular rate, Regular Rhythm Abdomen: Soft, Non Tender, Non-Distended Skin: No rashes Microbiology Past 72 Hours 03/21/20 00:00 Mucosa - Nasopharyngeal Respiratory Panel (PCR) - Final Laboratory Results 03/22/20 04:00: WBC 10.6, RBC 4.75, Hgb 14.7, Hct 43.7, MCV 92.0, MCH 30.9, MCHC 33.6, RDW Std Deviation 42.5, RDW Coeff of Carol 12.4, Plt Count 341, MPV 9.7 03/22/20 04:00: Sodium 140, Potassium 4.0, Chloride 111 H, Carbon Dioxide 23.0, Anion Gap 6, BUN 22 H, Creatinine 0.65 L, Estim Creat Clear Calc 76.52, Est GFR (MDRD) Af Amer 156, Est GFR (MDRD) Non-Af 129, BUN/Creatinine Ratio 33.7 H, Glucose 129 H, Calcium 7.4 L, Total Bilirubin 0.40, AST 42 H, ALT 64 H, Alkaline Phosphatase 70, Total Protein 6.2 L, Albumin 2.1 L, Globulin 4.1, Albumin/Globulin Ratio 0.5 L Current Medications Acetaminophen (Acetaminophen 650 Mg Suppository) 650 mg RECTAL Q4H PRN PRN PRN Reason: Pain Score 1-10/Temp > 100.7 F Acetaminophen (Acetaminophen 325 Mg Tablet) 650 mg PO Q6H PRN PRN PRN Reason: Pain Score 1-10/Temp > 100.7 F Last Admin: 03/22/20 08:07 Dose: 650 mg Documented by: Al Hydroxide/Mg Hydroxide (Mag Hydrox/Al Hydrox/Simeth 30 Ml Udc) 30 ml PO Q6H PRN PRN PRN Reason: Gastric Burning Albuterol Sulfate (Albuterol Sulfate 18 Gm Inhaler (200 Puffs)) 1 puff IH Q2H PRN PRN PRN Reason: Dyspnea, wheezing Dexamethasone Sodium Phosphate (Dexamethasone 10 Mg/Ml Vial) 6 mg IV DAILY [facility] Stop: 03/29/20 10:01 Last Admin: 03/22/20 08:07 Dose: 6 mg Documented by: Enoxaparin Sodium (Enoxaparin 100 Mg/Ml Syringe) 90 mg SC Q12 [facility] Last Admin: 03/22/20 08:07 Dose: 90 mg Documented by: Famotidine (Famotidine 20 Mg Tablet) 20 mg PO BID [facility] Last Admin: 03/22/20 08:07 Dose: 20 mg Documented by: Guaifenesin (Guaifenesin 10 Ml Udc (200mg/10ml)) 10 ml PO Q4H PRN PRN PRN Reason: COUGH Hydralazine HCl (Hydralazine 20 Mg/Ml Vial) 10 mg IV Q4H PRN PRN PRN Reason: SBP > 160 Sodium Chloride () 250 mls @ 15 mls/hr IV .[id number] PRN PRN Reason: Saline Flush Sodium Chloride () 250 mls @ 15 mls/hr IV .[id number] PRN PRN Reason: Additional IVPB Infusion Remdesivir 100 mg/ Sodium (Chloride) 250 mls @ 125 mls/hr IV DAILY [facility]; Protocol Stop: 03/25/20 11:59 Last Infusion: 03/22/20 12:25 Dose: Infused Documented by: Loperamide HCl (Loperamide 2 Mg Capsule) 4 mg PO Q4H PRN PRN PRN Reason: Diarrhea Miscellaneous Information (Inhaler, Assist Devices 1 Each Spacer) 1 each INHALATION PRN PRN PRN Reason: WITH ALBUTEROL INHALER Nitroglycerin (Nitroglycerin (Inpatient Use) 0.4 Mg Tab.Subl) 0.4 mg SUBLINGUAL Q5M PRN PRN Reason: CARDIAC/CHEST PAIN Ondansetron HCl (Ondansetron 4 Mg/2 Ml Vial) 4 mg IV Q8H PRN PRN PRN Reason: NAUSEA/VOMITING Prochlorperazine Edisylate (Prochlorperazine 10 Mg/2 Ml Vial) 5 mg IV Q4H PRN PRN PRN Reason: Breakthrough Nausea/Vomiting Sodium Chloride (0.9% Saline Lock 10 Ml Syringe) 10 - 40 ml IV UD PRN PRN Reason: SALINE FLUSH Throat Lozenges (Benzocaine/Menthol 1 Lozenge) 1 lozenge MUCOUS MEM Q2H PRN PRN PRN Reason: SORE THROAT Medical Necessity - Tobacco Use Smoking Status: Never smoker Tobacco Use: Non-smoker Route of nutrition/ use of supplements: [] Nutritional Intake: [] IV Site: [] Douglass Catheter: [] - Assessment/Plan Antibiotics: [] Assessment/Plan: [] Active and Suspected Problems COVID-19 (Acute) Septic shock (Acute) Acute respiratory failure with hypoxia (Acute) Elevated LFTs (Acute) Hyperglycemia (Acute) VINNY (acute kidney injury) (Acute) covid with severe sepsis, hypoxia - Sx started 03/19. VINNY improved, on 93% airvo. PCT 0.2. D-dimer 3.[address] neg for PE. Cont dex, remdesivir. also sick with covid. Feeling better today. Will follow
[2020-03-22] MEDS: guaiFENesin 10 ML UDC (200MG/10ML) PO (17:58)
[2020-03-22] MEDS: Loperamide 2 MG Capsule 4 MG PO (21:48)
[2020-03-23] VITALS (35 sets, daily range): BP systolic 101–153; BP diastolic 56–98; PULSE 74–107; RESP 12–25; TEMP 37–38.9; O2SAT 87–96
--- NOTE | 2020-03-23 01:30 | NURSING ---
Pt's O2 sat dropping on the monitor, pt sitting up in bed trying to use urinal and having a coughing spasm, nonproductive. P.ox down to 62% but pt also noted to be breathing through his mouth, not by mouth d/t type of BiPAP mask. Pt encouraged to close mouth and breathe mainly through his nose, O2 sats begin to recover. Urinal emptied. RT Hope arrived in to room, BiPAP pressures adjusted to assist pt recovery. 100% FiO2.
--- NOTE | 2020-03-23 04:00 | NURSING ---
Pt updated on MD orders for F/C. Explained to pt that it is very crucial for pt, at this point, to conserve as much vital energy as possible. Pt informed that he is strict bedrest now and will need to use the bedpan instead of BSC. Pt agreeable to plan of care.
[2020-03-23] MEDS: 0.9% Saline Lock 10 ML Syringe IV ×2 (04:19→10:04)
[2020-03-23] MEDS: Acetaminophen 325 MG Tablet 650 MG PO ×2 (04:19→12:47)
--- NOTE | 2020-03-23 04:25 | NURSING ---
16fr core temp F/C inserted after skin prep and procedure explanation w/out any difficulty for immediate return of clear straw colored urine and balloon inflated;catheter secured to L anterior thigh w/statlock. Pt justin all well.
[2020-03-23 04:30] LABS: Hematocrit 46.3 % (40-54); Hemoglobin 15.7 g/dL (13.0-16.5); Mean Corp Hgb Conc 33.9 g/dL (32-36); Mean Corpuscular Volume 91.3 fL (80-94); Mean Platelet Vol. 9.6 fl (6.2-12.0); Platelet Count 426 K/mm3 (150-450); RBC Distribution Width CV 12.6 % (11.6-14.6); RBC Distribution Width SD 41.8 fl (35.1-43.9); Red Blood Count 5.07 M/mm3 (4.6-6.2); White Blood Count 12.2 K/mm3 (4.4-11.0)
[2020-03-23 04:45] LABS: ALB/GLOB Ratio 0.5 RATIO (0.9-2.4); AST(SGOT) 41 U/L (15-37); Alanine Aminotransfer ALT/SGPT 54 U/L (16-61); Albumin, Serum 2.3 g/dL (3.2-5.0); Alkaline Phosphatase 90 U/L (45-117); Anion Gap 8 (5-15); BUN 20 mg/dL (7-18); Calcium,Total 7.9 mg/dL (8.5-10.1); Chloride 112 mmol/L (98-107); Creatinine, Serum 0.72 mg/dL (0.70-1.30); EST Glomerular Filtration Rate 116 mL/min (>60); Est Glom Filt Rate - Afr Amer 140 mL/min (>60); Estimated Creatinine Clearance 76.52 ml/min; Globulin 4.9 g/dL (2.2-4.2); Glucose 150 mg/dL (74-106); Potassium 3.8 mmol/L (3.5-5.1); Protein, Total 7.2 g/dL (6.4-8.2); Sodium Level 141 mmol/L (136-145)
--- NOTE | 2020-03-23 06:09 | PN_ITS ---
Subjective: The patient was seen and examined at the bedside this morning. Events from the last 24 hours have been reviewed. Overnight, a core temp Douglass catheter was placed as the patient readily desaturates with even small amounts of exertion. He was also noted to be febrile this morning with a T-max of 101.3 ?F. He is currently on maximum support from a BiPAP perspective with a pressure support of 14/10 centimeters of water and FiO2 requirement of 95%. He was transitioned from a full to a nasal mask for patient comfort. Due to the patient's fever this morning and tenuous respiratory status, he was started on empiric antimicrobials as well. The patient remains on therapeutic Lovenox, Decadron and remdesivir. Renal and liver function are stable. I did have a conversation with the patient regarding his overall clinical state including his high oxygen requirement. I expressed my concern that the patient is at high risk for intubation in the very near future given his continued BiPAP dependency and high FiO2 need. Objective: The patient's most recent lab work, culture data and imaging studies have all been personally reviewed. Respiratory viral panel was negative. Blood cultures have shown no growth to date. General: Alert, Cooperative, No apparent distress, - - The patient appears comfortable on BiPAP, despite his high oxygen requirements. HEENT: Atraumatic, PERRLA, Normocephalic Oral: No Gingival or Mucosal Lesions/ Ulcerations Neck: Supple, No Nodes, Trachea Midline Lungs: No rhonchi, No wheeze, No rales, Diminished, Tachypneic Cardiovascular: Regular rate, Regular Rhythm Abdomen: Bowel Sounds Present, Soft, Non Tender Extremities: No clubbing, No cyanosis, No edema Skin: No breakdown Musculoskeletal: No Muscle Wasting Lymphatic: No Cervical, Supraclavicular, or Inguinal Adenopathy Neurological: Cranial nerves II-XII grossly intact, Neuro grossly intact Psych/Mental Status: Normal Affect, Appropriate Vital Signs Temp Pulse Resp BP Pulse Ox 100.8 F H 84 23 H 119/71 93 03/23/20 06:00 03/23/20 06:00 03/23/20 06:00 03/23/20 06:00 03/23/20 06:00 Oxygen Flow Rate (L/min) 60 Oxygen Delivery Method Bi-pap Weight: 202 lb 2.622 oz Body Mass Index (BMI) 28.4 Intake and Output for Last 24 Hours 03/21/20 03/22/20 03/23/20 23:59 23:59 23:59 Intake Total 1613.33 / 1613.33 980 / 980 50 / 50 Output Total 1675 / 1675 1875 / 1875 500 / 500 Balance -61.67 / -61.67 -895 / -895 -450 / -450 Labs (Last 48 Hours) 03/21/20 03/21/20 03/22/20 03:00 05:00 04:00 WBC 10.6 RBC 4.75 Hgb 14.7 Hct 43.7 MCV 92.0 MCH 30.9 MCHC 33.6 RDW Std Deviation 42.5 RDW Coeff of Carol 12.4 Plt Count 341 MPV 9.7 Sodium Potassium Chloride Carbon Dioxide Anion Gap BUN Creatinine Estim Creat Clear Calc Est GFR (MDRD) Af Amer Est GFR (MDRD) Non-Af BUN/Creatinine Ratio Glucose Hemoglobin A1c 6.8 H Calcium Total Bilirubin AST ALT Alkaline Phosphatase B-Natriuretic Peptide 18.8 Total Protein Albumin Globulin Albumin/Globulin Ratio 03/22/20 03/23/20 03/23/20 04:00 04:15 04:15 WBC 12.2 H RBC 5.07 Hgb 15.7 Hct 46.3 MCV 91.3 MCH 31.0 MCHC 33.9 RDW Std Deviation 41.8 RDW Coeff of Carol 12.6 Plt Count 426 MPV 9.6 Sodium 140 141 Potassium 4.0 3.8 Chloride 111 H 112 H Carbon Dioxide 23.0 21.0 Anion Gap 6 8 BUN 22 H 20 H Creatinine 0.65 L 0.72 Estim Creat Clear Calc 76.52 76.52 Est GFR (MDRD) Af Amer 156 140 Est GFR (MDRD) Non-Af 129 116 BUN/Creatinine Ratio 33.7 H 28.0 H Glucose 129 H 150 H Hemoglobin A1c Calcium 7.4 L 7.9 L Total Bilirubin 0.40 0.60 AST 42 H 41 H ALT 64 H 54 Alkaline Phosphatase 70 90 B-Natriuretic Peptide Total Protein 6.2 L 7.2 Albumin 2.1 L 2.3 L Globulin 4.1 4.9 H Albumin/Globulin Ratio 0.5 L 0.5 L Microbiology 03/21/20 00:00 Mucosa - Nasopharyngeal Respiratory Panel (PCR) - Final Clinical Impression(s) from Imaging Studies Chest X-Ray 03/20/20 20:35 IMPRESSION: Findings consistent with Covid 19 pneumonia more severe on the left Electronically Signed: Alirio Soria MD at 20:56 EST , Service support , Chest CTA 03/20/20 21:33 IMPRESSION: 1. No evidence of pulmonary embolus. 2. No aortic dissection or aneurysm. 3. Groundglass infiltrates with bibasilar consolidation suggestive of COVID 19 pneumonia. 4. Calcified granulomata within the spleen. Electronically Signed: Jose G Cardoso DO at 23:46 EST Tel [phone], Service support , Medical Necessity - Tobacco Use Smoking Status: Never smoker Tobacco Use: Non-smoker Assessment/Plan All Active Problems COVID-19 (Acute) Septic shock (Acute) Acute respiratory failure with hypoxia (Acute) Elevated LFTs (Acute) Hyperglycemia (Acute) VINNY (acute kidney injury) (Acute) RECOMMENDATIONS: 1. Continue BIPAP and wean FiO2 to maintain saturations at or above 90%. 2. Continue Decadron 6 mg daily x10 days. 3. Continue remdesivir and monitor liver and renal function closely. 4. Continue therapeutic Lovenox. 5. Continue empiric antimicrobials. 6. Encourage incentive spirometer use. IMPRESSIONS: 1. Acute hypoxemic respiratory failure secondary to COVID-19 pneumonia In total, the patient has had symptoms now for approximately 2 weeks. D-dimer was elevated on presentation without PE identified on CTA chest. However, given the patient's tenuous respiratory status and elevated D-dimer level, will continue therapeutic Lovenox for now. The patient has already been started on Decadron 6 mg daily, which will be continued. The patient will also be continued on remdesivir, paying close attention to his liver and renal function. Continue to wean FiO2 to maintain oxygen saturations at or above 90%. Reviewed EUA and risks/benefits of convalescent plasma. Verbal consent was obtained from the patient. The patient is at high risk for intubation in the next 24 hours. If the patient does require intubation and continues to have a high oxygen requirement, consideration can be given to transfer to a tertiary care facility for consideration of ECMO. 2. Acute kidney injury Resolved. Likely prerenal in etiology. Improvement was noted with gentle IV fluid hydration. Continue to monitor urine output. No current indication for renal replacement therapy. TIME: 34 minutes of critical care time, independent of procedures, was spent addressing the patient's acute hypoxemic respiratory failure secondary to COVID- 19 pneumonia, acute kidney injury, review of all data and collaboration with the care team. ([id number])
[2020-03-23] MEDS: Phenylephrine 0.25%/Cocoa Btr 1 Rectal Supp 1 SUPP RC ×2 (06:31→21:20)
--- NOTE | 2020-03-23 07:21 | PCM.PN.HOSP ---
Patient Problems: Active and Suspected Problems COVID-19 (Acute) Septic shock (Acute) Acute respiratory failure with hypoxia (Acute) Elevated LFTs (Acute) Hyperglycemia (Acute) VINNY (acute kidney injury) (Acute) Reason for Visit: Acute hypoxic respiratory failure secondary to COVID-19 pneumonitis Subjective: Patient is a 69-year-old gentleman diagnosed with COVID-19 infection 10 days prior to this admission who presented to the emergency department with progressive shortness of breath 03/22/2020; patient was transitioned from BiPAP to Airvo; the patient had to be placed back on BiPAP due to significant hypoxia. Was also started on remdesivir by infectious disease the day prior 03/23/2020: Patient condition deteriorated resulting in patient being placed back on BiPAP currently on FiO2 of 100% Objective: GENERAL: Patient on BiPAP HEENT: Atraumatic; EYES; Anicteric, Normal Conjunctiva NECK; supple, normal thyroid, RESPIRATORY: Diminished to auscultation CARDIOVASCULAR: Regular S1 S2, GI: soft, normoactive bowel sounds, : No Renal angle tenderness; EXTREMITIES: No edema, no clubbing, MUSCULOSKELETAL: no muscle waisting NEURO: Awake; no lateralizing signs. SKIN: No Rash PSYCH; Flat affect Vitals/I&O's: Vital Signs Temp Pulse Resp BP Pulse Ox 100.8 F H 84 23 H 119/71 93 03/23/20 06:00 03/23/20 06:00 03/23/20 06:00 03/23/20 06:00 03/23/20 06:00 Oxygen Flow Rate (L/min) 60 Oxygen Delivery Method Bi-pap Weight: 91.7 kg Body Mass Index (BMI) 28.4 Intake and Output for Last 24 Hours 03/21/20 03/22/20 03/23/20 23:59 23:59 23:59 Intake Total 1613.33 / 1613.33 980 / 980 50 / 50 Output Total 1675 / 1675 1875 / 1875 650 / 650 Balance -61.67 / -61.67 -895 / -895 -600 / -600 Microbiology Past 72 Hours 03/21/20 00:00 Mucosa - Nasopharyngeal Respiratory Panel (PCR) - Final Laboratory Results 03/23/20 04:15: WBC 12.2 H, RBC 5.07, Hgb 15.7, Hct 46.3, MCV 91.3, MCH 31.0, MCHC 33.9, RDW Std Deviation 41.8, RDW Coeff of Carol 12.6, Plt Count 426, MPV 9.6 03/23/20 04:15: Sodium 141, Potassium 3.8, Chloride 112 H, Carbon Dioxide 21.0, Anion Gap 8, BUN 20 H, Creatinine 0.72, Estim Creat Clear Calc 76.52, Est GFR (MDRD) Af Amer 140, Est GFR (MDRD) Non-Af 116, BUN/Creatinine Ratio 28.0 H, Glucose 150 H, Calcium 7.9 L, Total Bilirubin 0.60, AST 41 H, ALT 54, Alkaline Phosphatase 90, Total Protein 7.2, Albumin 2.3 L, Globulin 4.9 H, Albumin/Globulin Ratio 0.5 L Current Medications Acetaminophen (Acetaminophen 650 Mg Suppository) 650 mg RECTAL Q4H PRN PRN PRN Reason: Pain Score 1-10/Temp > 100.7 F Acetaminophen (Acetaminophen 325 Mg Tablet) 650 mg PO Q6H PRN PRN PRN Reason: Pain Score 1-10/Temp > 100.7 F Last Admin: 03/23/20 04:19 Dose: 650 mg Documented by: Al Hydroxide/Mg Hydroxide (Mag Hydrox/Al Hydrox/Simeth 30 Ml Udc) 30 ml PO Q6H PRN PRN PRN Reason: Gastric Burning Albuterol Sulfate (Albuterol Sulfate 18 Gm Inhaler (200 Puffs)) 1 puff IH Q2H PRN PRN PRN Reason: Dyspnea, wheezing Dexamethasone Sodium Phosphate (Dexamethasone 10 Mg/Ml Vial) 6 mg IV DAILY [facility] Stop: 03/29/20 10:01 Last Admin: 03/22/20 08:07 Dose: 6 mg Documented by: Enoxaparin Sodium (Enoxaparin 100 Mg/Ml Syringe) 90 mg SC Q12 [facility] Last Admin: 03/22/20 21:38 Dose: 90 mg Documented by: Famotidine (Famotidine 20 Mg Tablet) 20 mg PO BID [facility] Last Admin: 03/22/20 21:38 Dose: 20 mg Documented by: Guaifenesin (Guaifenesin 10 Ml Udc (200mg/10ml)) 10 ml PO Q4H PRN PRN PRN Reason: COUGH Last Admin: 03/22/20 17:58 Dose: 10 ml Documented by: Hydralazine HCl (Hydralazine 20 Mg/Ml Vial) 10 mg IV Q4H PRN PRN PRN Reason: SBP > 160 Sodium Chloride () 250 mls @ 15 mls/hr IV .[id number] PRN PRN Reason: Saline Flush Sodium Chloride () 250 mls @ 15 mls/hr IV .[id number] PRN PRN Reason: Additional IVPB Infusion Remdesivir 100 mg/ Sodium (Chloride) 250 mls @ 125 mls/hr IV DAILY AMPARO; Protocol Stop: 03/25/20 11:59 Last Infusion: 03/22/20 12:25 Dose: Infused Documented by: Meropenem 1 gm/ Sodium (Chloride) 120 mls @ 33 mls/hr IV Q8 AMP[facility]O Vancomycin IV Pharmacy to Dose (1 ea/ Sodium Chloride) 500 mls @ 250 mls/hr IV X1 PRN; Protocol PRN Reason: Rx to Dose Vancomycin HCl 2,000 mg/ (Sodium Chloride) 540 mls @ 250 mls/hr IV X1 ONE Stop: 03/23/20 08:39 Loperamide HCl (Loperamide 2 Mg Capsule) 4 mg PO Q4H PRN PRN PRN Reason: Diarrhea Last Admin: 03/22/20 21:48 Dose: 4 mg Documented by: Miscellaneous Information (Inhaler, Assist Devices 1 Each Spacer) 1 each INHALATION PRN PRN PRN Reason: WITH ALBUTEROL INHALER Nitroglycerin (Nitroglycerin (Inpatient Use) 0.4 Mg Tab.Subl) 0.4 mg SUBLINGUAL Q5M PRN PRN Reason: CARDIAC/CHEST PAIN Ondansetron HCl (Ondansetron 4 Mg/2 Ml Vial) 4 mg IV Q8H PRN PRN PRN Reason: NAUSEA/VOMITING Prochlorperazine Edisylate (Prochlorperazine 10 Mg/2 Ml Vial) 5 mg IV Q4H PRN PRN PRN Reason: Breakthrough Nausea/Vomiting Sodium Chloride (0.9% Saline Lock 10 Ml Syringe) 10 - 40 ml IV UD PRN PRN Reason: SALINE FLUSH Last Admin: 03/23/20 04:19 Dose: 20 ml Documented by: Throat Lozenges (Benzocaine/Menthol 1 Lozenge) 1 lozenge MUCOUS MEM Q2H PRN PRN PRN Reason: SORE THROAT STROKE Vital Signs/Narrative: Vital Signs Temp Pulse Resp BP Pulse Ox 03/23/20 06:00 100.8 F H 84 23 H 119/71 93 03/23/20 05:00 101.3 F H 97 22 H 134/76 H 90 03/23/20 04:03 95 23 H 93 03/23/20 04:00 98.9 F 98 20 H 148/91 H 92 Medical Necessity - Tobacco Use Smoking Status: Never smoker Tobacco Use: Non-smoker Assessment/Plan All Active Problems COVID-19 (Acute) Septic shock (Acute) Acute respiratory failure with hypoxia (Acute) Elevated LFTs (Acute) Hyperglycemia (Acute) VINNY (acute kidney injury) (Acute) Patient is a 69-year-old gentleman diagnosed with COVID-19 infection 10 days prior to this admission who presented to the emergency department with progressive shortness of breath 1. Acute hypoxic respiratory failure ?Secondary to COVID-19 pneumonitis patient was found to have significant markers of inflammation including elevated lactic acid ferritin and D-dimer. Patient admitted to the safe care unit started on noninvasive ventilation (BiPAP) with consultation placed to both infectious disease and pulmonary medicine. Patient was started on Decadron decision to start remdesivir or convalescent plasma deferred -03/22/2020; 03/22/2020; patient was transitioned from BiPAP to Airvo; the patient had to be placed back on BiPAP due to significant hypoxia. Was also started on remdesivir by infectious disease the day prior03/23/2020: Patient condition deteriorated resulting in patient being placed back on BiPAP currently on FiO2 of 100% -03/23/2020: Patient condition deteriorated resulting in patient being placed back on BiPAP currently on FiO2 of 100% 2. Acute kidney injury Patient being resuscitated with IV fluid with subsequent monitoring of electrolyte kidney; function back to baseline 3. Hyperglycemia -Consistent with diabetes mellitus type 2. Patient hemoglobin A1c on admission was 6.8 patient placed on insulin sliding scale and with plans to consult diabetic education once patient condition stabilizes 4. Acute transaminitis ?Attributed to patient underlying viral infection; daily hepatic function test ordered 5. DVT prophylaxis ?Lovenox Inpatient E&M: [id number] [place] [id number]
--- NOTE | 2020-03-23 08:25 | PCM.RX.CS ---
Consult Pharmacy has been consulted to manage selected antiobiotic: Vancomycin Type of Consult: New start Suspected Infection: Sepsis Labs: Sodium 141 mmol/L (136-145) 03/23/20 04:15 Potassium 3.8 mmol/L (3.5-5.1) 03/23/20 04:15 Chloride 112 mmol/L (98-107) H 03/23/20 04:15 Carbon Dioxide 21.0 mmol/L (21.0-32.0) 03/23/20 04:15 Anion Gap 8 (5-15) 03/23/20 04:15 BUN 20 mg/dL (7-18) H 03/23/20 04:15 Creatinine 0.72 mg/dL (0.70-1.30) 03/23/20 04:15 Est GFR (MDRD) Af Amer 140 mL/min (>60) 03/23/20 04:15 Est GFR (MDRD) Non-Af 116 mL/min (>60) 03/23/20 04:15 BUN/Creatinine Ratio 28.0 RATIO (10-20) H 03/23/20 04:15 Glucose 150 mg/dL (74-106) H 03/23/20 04:15 Microbiology: Microbiology 03/20/20 20:05 Blood Culture (Wb) - Right Hand Blood Culture - Preliminary No growth in 48 hours. 03/20/20 19:50 Blood Culture (Wb) - Anticubital Left Blood Culture - Preliminary No growth in 48 hours. 03/21/20 00:00 Mucosa - Nasopharyngeal Respiratory Panel (PCR) - Final Goal Trough: 15-20 mcg/mL Pharmacy Plan for Drug Dosing: NEW START IV VANCOMYCIN Consulting Physician:Dr. Kline Indication: Sepsis Goal Trough: 15-20 SrCr: 0.72 CrCl: 106 mL/min (using AdjBW 77.6kg) Comments: Loading dose x1 of 2000mg given 03/23 @0705 Vancomcyin Dose: Start scheduled vancomycin 1000mg IV Q8hr 03/23/20 @1500. Pending Level: 03/24/20 @0630 (Prior to 4th total dose per protocol) Pharmacy Service will continue to monitor and adjust dosing as required.
[2020-03-23] MEDS: Enoxaparin 100 MG/ML Syringe 90 MG SC ×2 (09:58→21:17)
[2020-03-23] MEDS: dexAMETHasone 10 MG/ML Vial 6 MG IV (09:58)
--- NOTE | 2020-03-23 11:06 | PCM.PN.ID ---
Patient Problems: Active and Suspected Problems COVID-19 (Acute) Septic shock (Acute) Acute respiratory failure with hypoxia (Acute) Elevated LFTs (Acute) Hyperglycemia (Acute) VINNY (acute kidney injury) (Acute) Subjective: Feeling ok but worsened O2. Fever overnight. - Physical Exam Vitals/I&O's: Vital Signs Temp Pulse Resp BP Pulse Ox 100.6 F H 107 H 24 H 138/74 H 95 03/23/20 08:00 03/23/20 09:57 03/23/20 09:57 03/23/20 09:00 03/23/20 09:57 Oxygen Flow Rate (L/min) 60 Oxygen Delivery Method Bi-pap Weight: 91.7 kg Body Mass Index (BMI) 28.4 Intake and Output for Last 24 Hours 03/21/20 03/22/20 03/23/20 23:59 23:59 23:59 Intake Total 1613.33 / 1613.33 980 / 980 590 / 590 Output Total 1675 / 1675 1875 / 1875 850 / 850 Balance -61.67 / -61.67 -895 / -895 -260 / -260 General: Alert, Cooperative Lungs: Diminished Cardiovascular: Regular rate, Regular Rhythm Abdomen: Soft, Non Tender, Non-Distended Skin: No rashes Microbiology Past 72 Hours 03/20/20 20:05 Blood Culture (Wb) - Right Hand Blood Culture - Preliminary No growth in 48 hours. 03/20/20 19:50 Blood Culture (Wb) - Anticubital Left Blood Culture - Preliminary No growth in 48 hours. 03/21/20 00:00 Mucosa - Nasopharyngeal Respiratory Panel (PCR) - Final Laboratory Results 03/23/20 04:15: WBC 12.2 H, RBC 5.07, Hgb 15.7, Hct 46.3, MCV 91.3, MCH 31.0, MCHC 33.9, RDW Std Deviation 41.8, RDW Coeff of Carol 12.6, Plt Count 426, MPV 9.6 03/23/20 04:15: Sodium 141, Potassium 3.8, Chloride 112 H, Carbon Dioxide 21.0, Anion Gap 8, BUN 20 H, Creatinine 0.72, Estim Creat Clear Calc 76.52, Est GFR (MDRD) Af Amer 140, Est GFR (MDRD) Non-Af 116, BUN/Creatinine Ratio 28.0 H, Glucose 150 H, Calcium 7.9 L, Total Bilirubin 0.60, AST 41 H, ALT 54, Alkaline Phosphatase 90, Total Protein 7.2, Albumin 2.3 L, Globulin 4.9 H, Albumin/Globulin Ratio 0.5 L 03/23/20 10:35: MRSA (PCR) Pending 03/23/20 10:35: Procalcitonin Pending Current Medications Acetaminophen (Acetaminophen 650 Mg Suppository) 650 mg RECTAL Q4H PRN PRN PRN Reason: Pain Score 1-10/Temp > 100.7 F Acetaminophen (Acetaminophen 325 Mg Tablet) 650 mg PO Q6H PRN PRN PRN Reason: Pain Score 1-10/Temp > 100.7 F Last Admin: 03/23/20 04:19 Dose: 650 mg Documented by: Al Hydroxide/Mg Hydroxide (Mag Hydrox/Al Hydrox/Simeth 30 Ml Udc) 30 ml PO Q6H PRN PRN PRN Reason: Gastric Burning Albuterol Sulfate (Albuterol Sulfate 18 Gm Inhaler (200 Puffs)) 1 puff IH Q2H PRN PRN PRN Reason: Dyspnea, wheezing Dexamethasone Sodium Phosphate (Dexamethasone 10 Mg/Ml Vial) 6 mg IV DAILY [facility] Stop: 03/29/20 10:01 Last Admin: 03/23/20 09:58 Dose: 6 mg Documented by: Enoxaparin Sodium (Enoxaparin 100 Mg/Ml Syringe) 90 mg SC Q12 [facility] Last Admin: 03/23/20 09:58 Dose: 90 mg Documented by: Guaifenesin (Guaifenesin 10 Ml Udc (200mg/10ml)) 10 ml PO Q4H PRN PRN PRN Reason: COUGH Last Admin: 03/22/20 17:58 Dose: 10 ml Documented by: Hydralazine HCl (Hydralazine 20 Mg/Ml Vial) 10 mg IV Q4H PRN PRN PRN Reason: SBP > 160 Sodium Chloride () 250 mls @ 15 mls/hr IV .[id number] PRN PRN Reason: Saline Flush Sodium Chloride () 250 mls @ 15 mls/hr IV .[id number] PRN PRN Reason: Additional IVPB Infusion Remdesivir 100 mg/ Sodium (Chloride) 250 mls @ 125 mls/hr IV DAILY [facility]ARO; Protocol Stop: 03/25/20 11:59 Last Infusion: 03/22/20 12:25 Dose: Infused Documented by: Meropenem 1 gm/ Sodium (Chloride) 120 mls @ 33 mls/hr IV Q8 [facility] Vancomycin IV Pharmacy to Dose (1 ea/ Sodium Chloride) 500 mls @ 250 mls/hr IV PRN PRN; Protocol PRN Reason: Rx to Dose Vancomycin HCl (Vancomycin) 1,000 mg in 200 mls @ 200 mls/hr IV Q8H [facility] Famotidine 20 mg/ Sodium (Chloride) 10 mls @ 300 mls/hr IV Q12 [facility] Loperamide HCl (Loperamide 2 Mg Capsule) 4 mg PO Q4H PRN PRN PRN Reason: Diarrhea Last Admin: 03/22/20 21:48 Dose: 4 mg Documented by: Miscellaneous Information (Inhaler, Assist Devices 1 Each Spacer) 1 each INHALATION PRN PRN PRN Reason: WITH ALBUTEROL INHALER Nitroglycerin (Nitroglycerin (Inpatient Use) 0.4 Mg Tab.Subl) 0.4 mg SUBLINGUAL Q5M PRN PRN Reason: CARDIAC/CHEST PAIN Ondansetron HCl (Ondansetron 4 Mg/2 Ml Vial) 4 mg IV Q8H PRN PRN PRN Reason: NAUSEA/VOMITING Prochlorperazine Edisylate (Prochlorperazine 10 Mg/2 Ml Vial) 5 mg IV Q4H PRN PRN PRN Reason: Breakthrough Nausea/Vomiting Sodium Chloride (0.9% Saline Lock 10 Ml Syringe) 10 - 40 ml IV UD PRN PRN Reason: SALINE FLUSH Last Admin: 03/23/20 10:04 Dose: 20 ml Documented by: Throat Lozenges (Benzocaine/Menthol 1 Lozenge) 1 lozenge MUCOUS MEM Q2H PRN PRN PRN Reason: SORE THROAT Medical Necessity - Tobacco Use Smoking Status: Never smoker Tobacco Use: Non-smoker Route of nutrition/ use of supplements: [] Nutritional Intake: [] IV Site: [] Douglass Catheter: [] - Assessment/Plan Antibiotics: [] Assessment/Plan: [] Active and Suspected Problems COVID-19 (Acute) Septic shock (Acute) Acute respiratory failure with hypoxia (Acute) Elevated LFTs (Acute) Hyperglycemia (Acute) VINNY (acute kidney injury) (Acute) covid with severe sepsis, hypoxia - Sx started 03/19. VINNY improved, 100% bipap. PCT 0.2. D-dimer 3.[address] neg for PE. Cont dex, completed remdesivir. also sick with covid. Feeling better but worsened O2. May need intubation. Empiric vanc/ra started today, will check cxs and PCT. Did not receive plasma earlier in course due to risk of decompensation. Will follow
[2020-03-23 11:38] LABS: Procalcitonin 0.25 ng/mL (0.00-0.09)
[2020-03-23 12:26] LABS: M R Staph aureus DNA By PCR Negative (Negative); Probe Check PASS; Specimen Processing Control PASS
--- NOTE | 2020-03-23 12:28 | CASEMGMT ---
Insurance lookup for [facility] for MMO: [facility], [facility], [facility], [facility], [facility], [facility], [facility], [place]: [employer] [place].
[2020-03-23] MEDS: Vancomycin IV 1,000 MG/200 ML BAG 200 MG IV (16:15)
[2020-03-23] MEDS: Loperamide 2 MG Capsule 4 MG PO (21:22)
[2020-03-24] VITALS (19 sets, daily range): BP systolic 78–166; BP diastolic 47–91; PULSE 77–118; RESP 12–25; TEMP 38.1–39.1; O2SAT 76–94
[2020-03-24] MEDS: Vancomycin IV 1,000 MG/200 ML BAG 200 MG IV ×2 (00:15→09:36)
[2020-03-24] MEDS: Acetaminophen 325 MG Tablet 650 MG PO (00:41)
--- NOTE | 2020-03-24 01:00 | CPS ---
added heated humidity on BiPAP circuit
[2020-03-24 04:32] LABS: Hematocrit 43.3 % (40-54); Hemoglobin 14.1 g/dL (13.0-16.5); Mean Corp Hgb Conc 32.6 g/dL (32-36); Mean Corpuscular Hgb 30.5 pg (27.0-32.0); Mean Corpuscular Volume 93.7 fL (80-94); Mean Platelet Vol. 9.9 fl (6.2-12.0); Platelet Count 372 K/mm3 (150-450); RBC Distribution Width CV 12.9 % (11.6-14.6); RBC Distribution Width SD 44.2 fl (35.1-43.9); Red Blood Count 4.62 M/mm3 (4.6-6.2); White Blood Count 11.2 K/mm3 (4.4-11.0)
[2020-03-24 04:52] LABS: ALB/GLOB Ratio 0.4 RATIO (0.9-2.4); AST(SGOT) 52 U/L (15-37); Alanine Aminotransfer ALT/SGPT 49 U/L (16-61); Albumin, Serum 2.1 g/dL (3.2-5.0); Alkaline Phosphatase 103 U/L (45-117); Anion Gap 6 (5-15); BUN 17 mg/dL (7-18); BUN/Creat Ratio 22.2 RATIO (10-20); Calcium,Total 7.6 mg/dL (8.5-10.1); Chloride 107 mmol/L (98-107); Creatinine, Serum 0.77 mg/dL (0.70-1.30); EST Glomerular Filtration Rate 107 mL/min (>60); Est Glom Filt Rate - Afr Amer 129 mL/min (>60); Estimated Creatinine Clearance 76.52 ml/min; Globulin 5.1 g/dL (2.2-4.2); Glucose 290 mg/dL (74-106); Protein, Total 7.2 g/dL (6.4-8.2); Sodium Level 135 mmol/L (136-145)
--- NOTE | 2020-03-24 06:04 | PCM.PN.INT ---
Subjective: The patient was seen and examined at the bedside this morning. Events from the last 24 hours have been reviewed. The patient continues to have fevers with a T-max overnight of 102.2 ?F. The patient remains BiPAP dependent with an FiO2 requirement of 95%. He did consent to and receive convalescent plasma. The patient remains on therapeutic Lovenox, Decadron, remdesivir and broad-spectrum antimicrobials. Liver and renal function are stable. I did speak with the patient this morning and explained to him that given his continued BiPAP dependency with high FiO2 needs over the last several days, that I would recommend that we proceed with intubation at this time. The patient is in agreement. Intubation Indication: Respiratory failure Consent was obtained from: Patient The patient was placed in the appropriate sniffing position. Preoxygenated sedation via BiPAP was provided for a minimum of 3 minutes. The patient had continuous cardiac as well as pulse oximetry monitoring during the procedure. Procedure sedation was provided by the administration of 4 mg of Versed and 20 mg of etomidate. Direct laryngoscopy was then performed using a number 4 MAC blade, which revealed a grade 1 view. A 8.0 mm endotracheal tube was visualized advancing between the cords to the level of 22 cm at the lip. The stylette was then removed and discarded. Tube placement was confirmed by fogging in the tube along with equal and bilateral breath sounds. Colorimetric change was visualized on the CO2 meter. The cuff was then inflated and the tube secured using a commercially available device. A good pulse oximetry waveform was seen on the monitor throughout the procedure. A portable chest x-ray has been ordered to confirm appropriate placement. The patient tolerated the procedure well. Post intubation, the patient was notably hypoxemic, requiring a significant amount of sedation including fentanyl and propofol, along with high ventilator parameters including 100% FiO2 and PEEP of 18. Chest x-ray revealed the endotracheal tube to be approximately 5 cm proximal to the annia. Therefore, the endotracheal tube was advanced by 2 cm. The patient had significant infiltrates throughout the bilateral lungs, most pronounced in the left hemithorax. Accordingly, the patient was placed on his right side in hopes of improving VQ matching. Objective: The patient's most recent lab work, culture data and imaging studies have all been personally reviewed. Respiratory viral panel was negative. Blood cultures have shown no growth to date. General: Alert, Cooperative, - - Sitting upright in bed with BiPAP in place. HEENT: Atraumatic, PERRLA, Normocephalic Oral: Dry Mucosa Neck: Supple, No Nodes, Trachea Midline Lungs: No rhonchi, No wheeze, No rales, Diminished, Tachypneic, - - Some conversational dyspnea noted. Cardiovascular: Regular rate, Regular Rhythm Abdomen: Bowel Sounds Present, Soft, Non Tender Extremities: No clubbing, No cyanosis, No edema Skin: No breakdown Musculoskeletal: No Tenderness to Palpation of Joints or Extremities Lymphatic: No Cervical, Supraclavicular, or Inguinal Adenopathy Neurological: Cranial nerves II-XII grossly intact, Neuro grossly intact Psych/Mental Status: Normal Affect, Appropriate Vital Signs Temp Pulse Resp BP Pulse Ox 100.6 F H 98 23 H 136/75 H 92 03/24/20 03:00 03/24/20 04:00 03/24/20 03:30 03/24/20 03:00 03/24/20 03:30 Oxygen Flow Rate (L/min) 60 Oxygen Delivery Method Bi-pap Weight: 206 lb 9.17 oz Body Mass Index (BMI) 28.4 Intake and Output for Last 24 Hours 03/22/20 03/23/20 03/24/20 23:59 23:59 23:59 Intake Total 980 / 980 1531.00 / 1831.00 300 / 300 Output Total 1875 / 1875 1475 / 1475 70 / 70 Balance -895 / -895 56.00 / 356.00 230 / 230 Labs (Last 48 Hours) 03/23/20 03/23/20 03/23/20 04:15 04:15 10:35 WBC 12.2 H RBC 5.07 Hgb 15.7 Hct 46.3 MCV 91.3 MCH 31.0 MCHC 33.9 RDW Std Deviation 41.8 RDW Coeff of Carol 12.6 Plt Count 426 MPV 9.6 Sodium 141 Potassium 3.8 Chloride 112 H Carbon Dioxide 21.0 Anion Gap 8 BUN 20 H Creatinine 0.72 Estim Creat Clear Calc 76.52 Est GFR (MDRD) Af Amer 140 Est GFR (MDRD) Non-Af 116 BUN/Creatinine Ratio 28.0 H Glucose 150 H Calcium 7.9 L Total Bilirubin 0.60 AST 41 H ALT 54 Alkaline Phosphatase 90 Total Protein 7.2 Albumin 2.3 L Globulin 4.9 H Albumin/Globulin Ratio 0.5 L Procalcitonin MRSA (PCR) Negative 03/23/20 03/24/20 03/24/20 10:35 04:10 04:10 WBC 11.2 H RBC 4.62 Hgb 14.1 Hct 43.3 MCV 93.7 MCH 30.5 MCHC 32.6 RDW Std Deviation 44.2 H RDW Coeff of Carol 12.9 Plt Count 372 MPV 9.9 Sodium 135 L Potassium 4.0 Chloride 107 Carbon Dioxide 22.0 Anion Gap 6 BUN 17 Creatinine 0.77 Estim Creat Clear Calc 76.52 Est GFR (MDRD) Af Amer 129 Est GFR (MDRD) Non-Af 107 BUN/Creatinine Ratio 22.2 H Glucose 290 H Calcium 7.6 L Total Bilirubin 0.90 AST 52 H ALT 49 Alkaline Phosphatase 103 Total Protein 7.2 Albumin 2.1 L Globulin 5.1 H Albumin/Globulin Ratio 0.4 L Procalcitonin 0.25 H MRSA (PCR) Microbiology 03/20/20 20:05 Blood Culture (Wb) - Right Hand Blood Culture - Preliminary No growth in 48 hours. 03/20/20 19:50 Blood Culture (Wb) - Anticubital Left Blood Culture - Preliminary No growth in 48 hours. Clinical Impression(s) from Imaging Studies Chest X-Ray 03/20/20 20:35 IMPRESSION: Findings consistent with Covid 19 pneumonia more severe on the left Electronically Signed: Alirio Soria MD at 20:56 EST , Service support , Chest CTA 03/20/20 21:33 IMPRESSION: 1. No evidence of pulmonary embolus. 2. No aortic dissection or aneurysm. 3. Groundglass infiltrates with bibasilar consolidation suggestive of COVID 19 pneumonia. 4. Calcified granulomata within the spleen. Electronically Signed: Jose G Cardoso DO at 23:46 EST Tel [phone], Service support , Medical Necessity - Tobacco Use Smoking Status: Never smoker Tobacco Use: Non-smoker Assessment/Plan All Active Problems COVID-19 (Acute) Septic shock (Acute) Acute respiratory failure with hypoxia (Acute) Elevated LFTs (Acute) Hyperglycemia (Acute) VINNY (acute kidney injury) (Acute) RECOMMENDATIONS: 1. Proceed with intubation this morning. 2. Place patient on assist control mode of mechanical ventilation and maintain PEEP/FiO2 to maintain saturations at or above 90%. 3. Attempt to keep plateau pressures below 30. 4. Play central venous catheter and start Levophed, given hemodynamic instability. Maintain mean arterial pressure at or above [address] patient on right side in hopes of improving VQ match. 6. Start cis atracurium as ordered. 7. Continue Decadron and remdesivir. Continue to monitor liver and renal function closely. 8. Obtain arterial blood gas in 1 hour. 9. Continue antimicrobials per ID recommendations. 10. Discussed potential transfer to tertiary care facility to facilitate possible ECMO IMPRESSIONS: 1. Acute hypoxemic respiratory failure secondary to COVID-19 pneumonia In total, the patient has had symptoms now for approximately 2 weeks. D-dimer was elevated on presentation without PE identified on CTA chest. However, given the patient's tenuous respiratory status and elevated D-dimer level, will continue therapeutic Lovenox for now. To date, the patient has been treated with convalescent plasma, remdesivir and Decadron. Unfortunately, despite several days of continuous BiPAP support, the patient continued to decompensate from a respiratory perspective and was intubated on the morning of March 24. He has significant ventilator support requirements, including high FiO2 and PEEP. The patient sedation regimen will be optimized and he will be started on cis atracurium. The patient will be placed on his right side as well, based upon chest imaging from this morning, in hopes of improving VQ match. I would recommend considering possible transfer to a tertiary care facility with ECMO capabilities, if feasible. If transfer is not feasible, will plan to prone patient. 2. Distributive shock The patient became hemodynamically unstable as a consequence of the sedative medication use being employed. We will plan to place a central venous catheter and start the patient on vasopressor support to maintain a mean arterial pressure at or above 65 mmHg. Continue antimicrobials as well per infectious diseases recommendations. 3. Acute kidney injury Resolved. Likely prerenal in etiology. Improvement was noted with gentle IV fluid hydration. Continue to monitor urine output. No current indication for renal replacement therapy. UPDATE: With vent optimization, along with introduction of paralytics the patient's oxygen saturations to have improved to greater than 90%. is willing to take patient in transfer for consideration of ECMO. Patient's is agreeable. Plan for air transportation to [facility]. TIME: 82 minutes of critical care time, inclusive of procedures, was spent addressing the patient's acute hypoxemic respiratory failure secondary to COVID-19 pneumonia, acute kidney injury, distributive shock, review of all data and collaboration with the care team. ([id number], [id number]) Procedures: 39601 Critial Care Addl 30 Min 9xxxx: [id number] Critical care first hour
[2020-03-24] MEDS: Etomidate 20 MG/10 ML Vial IV (07:54)
[2020-03-24] MEDS: Midazolam 2 MG/2 ML Syringe 4 MG IV (07:54)
[2020-03-24] MEDS: Propofol 10MG/Ml 1,000 MG/100 ML Bottle 11.2 MG CONT INF ×2 (08:00→09:50)
--- NOTE | 2020-03-24 08:01 | RAD_ITS ---
STUDY: X-RAY CHEST REASON FOR EXAM: Male, 69 years old. reps failure, COVID -- ET tube placement, NG/OG tube placement TECHNIQUE: Single AP portable view of the chest. COMPARISON: Comparison is made with prior study dated 03/20/2020. FINDINGS: An endotracheal tube is in situ. The tip is at 5.2 cm proximal to the annia. An orogastric tube is seen with the tip below the left hemidiaphragm. EKG leads are seen. Since prior study, there has been progressive infiltration in the left hemithorax. Progressive infiltrate at the right lung base. Blunting of both costophrenic angles. Normal size heart. Normal mediastinum and antonietta. Normal visualized pulmonary arteries. There is atherosclerotic calcification of the aortic arch with tortuosity. There are diffuse degenerative changes of the visualized thoracic spine. There is degenerative osteoarthritis of the bilateral shoulders. There is no demonstrated abnormality of the visualized soft tissue structures of the upper abdomen. RAD/Chest 1 View (Portable) IMPRESSION: Support tubes are in good position. Progressive infiltration in the left hemithorax as well as at the right lung base with blunting of both costophrenic angles. Electronically Signed: Scott Dimaond, at 8:37 EST , Service support ,
[2020-03-24] MEDS: 0.9% Saline Lock 10 ML Syringe IV (08:32)
[2020-03-24 09:07] LABS: Vancomycin, Trough Level 11.8 ug/mL (5.0-15.0)
--- NOTE | 2020-03-24 09:12 | RAD_ITS ---
STUDY: X-RAY CHEST REASON FOR EXAM: Male, 69 years old. Central line placement TECHNIQUE: Single AP portable view of the chest. COMPARISON: Comparison is made with prior study done earlier today at 8:05 AM. FINDINGS: A right-sided central catheter has been placed. The tip is at the junction of the superior vena cava and right atrium. The remainder of the examination is unchanged. RAD/CXR for Line Placement IMPRESSION: The tip of the right central catheter is at the junction of the superior vena cava and right atrium. Electronically Signed: Scott Diamond, at 9:57 EST , Service support ,
--- NOTE | 2020-03-24 09:33 | PCM.OPRPT ---
Report of Operation Date of Procedure: 03/24/20 Surgery/Procedure Performed:: Triple-lumen catheter insertion Description of Surgical Findings:: Central line placement procedure note Indication: IV access/hemodynamic instability/vasoactive medications Procedure: A time-out was completed to verify correct patient, indication, medication allergies, procedure, coagulation studies, informed consent signed, and equipment needed. The patient was placed in the supine position for a central line placement to the rt IJ vein. The patients rt neck was prepped using chlorhexidine and a full body sterile drape was applied. 1% lidocaine was used to anesthetize the surrounding skin. A 7fr 16 cm blue guard triple lumen catheter introduced into the internal jugular vein using the modified Seldinger technique with the assistance of ultrasound. The catheter was threaded smoothly over the guidewire, the guidewire was removed easily, nonpulsatile blood returned. All ports were aspirated of air and flushed with sterile saline. The catheter was sutured in place and covered with an occlusive dressing impregnated with chlorhexidine. Post-procedure: The patient tolerated the procedure well. Vital signs remained stable. EBL 3cc. No complications. Chest X Ray ordered to confirm tip placement and the absence of pneumothorax. Procedures: [id number] Insert Non-tunnel CV Cath
--- NOTE | 2020-03-24 09:55 | CASEMGMT ---
RN Note: participated in ICU interdisciplinary rounds. Patient was intubated this am, placed on ventilatory support, 100% O2. Levophed gtt, Cisatracurium infusion, Diprivan gtt, Remdesivir. will be updated and offered opportunity to see patient prior to transfer. She is on the medical 2 Cohort unit. DC PLAN: Planning to transfer to tertiary care when accepting hospital is found. [facility] facility list in notes. Santiago BAUTISTA RN ACM
--- NOTE | 2020-03-24 10:29 | PCM.RX.CS ---
Consult Pharmacy has been consulted to manage selected antiobiotic: Vancomycin Type of Consult: Follow-up Labs: Sodium 135 mmol/L (136-145) L 03/24/20 04:10 Potassium 4.0 mmol/L (3.5-5.1) 03/24/20 04:10 Chloride 107 mmol/L (98-107) 03/24/20 04:10 Carbon Dioxide 22.0 mmol/L (21.0-32.0) 03/24/20 04:10 Anion Gap 6 (5-15) 03/24/20 04:10 BUN 17 mg/dL (7-18) 03/24/20 04:10 Creatinine 0.77 mg/dL (0.70-1.30) 03/24/20 04:10 Est GFR (MDRD) Af Amer 129 mL/min (>60) 03/24/20 04:10 Est GFR (MDRD) Non-Af 107 mL/min (>60) 03/24/20 04:10 BUN/Creatinine Ratio 22.2 RATIO (10-20) H 03/24/20 04:10 Glucose 290 mg/dL (74-106) H 03/24/20 04:10 Vancomycin Trough 11.8 ug/mL (5.0-15.0) 03/24/20 08:40 Microbiology: Microbiology 03/23/20 10:50 Blood Culture (Wb) - Right Wrist Blood Culture - Preliminary 03/20/20 20:05 Blood Culture (Wb) - Right Hand Blood Culture - Preliminary No growth in 48 hours. 03/20/20 19:50 Blood Culture (Wb) - Anticubital Left Blood Culture - Preliminary No growth in 48 hours. 03/21/20 00:00 Mucosa - Nasopharyngeal Respiratory Panel (PCR) - Final Goal Trough: 15-20 mcg/mL Pharmacy Plan for Drug Dosing: VANCOMYCIN LEVEL RECEIVED Current Vancomycin Dose: 1000mg IV Q8hr Number of Doses Received: 4 (3 prior to trough draw) Vancomycin Level: 11.8 Hours Since Last Dose: 8.5hr Renal Function: 0.77 Renal Function Trend: slight increase Lab/Micro: Pending Vancomycin Plan/Comments: Trough drawn 03/24/20 @0840, which resulted in a value of 11.8 (goal 15-20). The trough was drawn 2 hours later. Due to older age, slight increase in renal function, and trough being drawn 1hr late, will hesitate to increase dose at this time. Will continue current dose and check a trough in 24hrs to reassess dosing at that time. Pending Level: 03/25/20 @0630 Pharmacy Service will continue to monitor and adjust dosing as required.
[2020-03-24 11:13] LABS: CPK Total, Creatine Kinase 135 U/L (39-308); Triglycerides 109 mg/dL
[2020-03-24 11:15] LABS: Allen Test Positive; Base Excess -4 mmol/L (-2 to +2); Bicarbonate 22.9 mmol/L (22-26); Blood Gas Specimen Type ART; FI02 100; Mode AC; O2 Delivery Device Adult Vent; PEEP 18; PO2 66 mmHG (75-100); RR 12; SITE L Radial; SO2 90 % (95-99); Total Carbon Dioxide 24 mmol/L; Vt 550; pCO2 49.9 mmHg (35-45); pH 7.27 (7.35-7.45)
[2020-03-24] MEDS: Phenylephrine 0.25%/Cocoa Btr 1 Rectal Supp 1 SUPP RC (11:58)
[2020-03-24] MEDS: Enoxaparin 100 MG/ML Syringe 90 MG SC (12:02)
[2020-03-24] MEDS: dexAMETHasone 10 MG/ML Vial 6 MG IV (12:02)
[2020-03-24] MEDS: Acetaminophen 650 MG Suppository RECTAL (12:29)
[2020-03-24 13:15] LABS: Bedside Glucose 176 mg/dL (70-110)
--- NOTE | 2020-03-24 18:49 | DS.PCM_ITS ---
Discharge Date and Diagnosis - Problem List Patient Problems: Active and Suspected Problems COVID-19 (Acute) Septic shock (Acute) Acute respiratory failure with hypoxia (Acute) Elevated LFTs (Acute) Hyperglycemia (Acute) VINNY (acute kidney injury) (Acute) Date of Admission: 03/20/20 Date of Discharge: 03/24/20 - Primary Discharge Diagnosis Acute Problems: Active Problems COVID-19 (Acute) Septic shock (Acute) Acute respiratory failure with hypoxia (Acute) Elevated LFTs (Acute) Hyperglycemia (Acute) VINNY (acute kidney injury) (Acute) Hospital Course and Treatment Imaging Results: Clinical Impression(s) from Imaging Studies Chest X-Ray 03/20/20 20:35 IMPRESSION: Findings consistent with Covid 19 pneumonia more severe on the left Electronically Signed: Alirio Soria MD at 20:56 EST , Service support , Chest CTA 03/20/20 21:33 IMPRESSION: 1. No evidence of pulmonary embolus. 2. No aortic dissection or aneurysm. 3. Groundglass infiltrates with bibasilar consolidation suggestive of COVID 19 pneumonia. 4. Calcified granulomata within the spleen. Electronically Signed: Jose G Cardoso DO at 23:46 EST Tel [phone], Service support , Chest X-Ray 03/24/20 08:01 IMPRESSION: Support tubes are in good position. Progressive infiltration in the left hemithorax as well as at the right lung base with blunting of both costophrenic angles. Electronically Signed: Scott Diamond, at 8:37 EST , Service support , Chest X-Ray 03/24/20 09:12 IMPRESSION: The tip of the right central catheter is at the junction of the superior vena cava and right atrium. Electronically Signed: Scott Diamond, at 9:57 EST , Service support , Consults: ID Pulmonology Operations: None Procedures: None Summary of Care Provided: Per HPI: The patient is a 69 y/o M w/ no marked PMHx not on any medications who presents to the [facility] ED on 03/20/20 with history of onset fatigue, malaise, frontal headaches described as throbbing, aching in addition to occasional diarrhea with no nausea or abdominal cramping associated with cough noted to be dry and ongoing persistently worsening dyspnea, more severe over the last 24 hours prompting ED evaluation. Patient denies any related fever, chills, specifically body aches, alteration in sense of taste or smell. Patient was tested 10 days prior and was Covid positive at that time. Patient's also became symptomatic following onset of his illness. 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 Work-up in the ED included initially T 97.2, heart rate 103, BP 138/114, respiratory rate 30, 60% on room air -->T 98.4, heart rate 106, BP 142/84, respiratory rate 21, 5% on 10% BiPAP, CBC with WC 10.6, hemoglobin 16.8, platelet 364 without marked shift, D-dimer 3.20, ABG with pH 7.48, PCO2 21.9, PO2 82, BiPAP in place, CMP with sodium 134, carbon oxide 20, BUN/creatinine 25/1.35, glucose 190, lactic acid 5.9, calcium 8.0, total bilirubin 0.80, AST/ALT 90/102, alk phos 104, troponin less than 0.015, procalcitonin pending, culture x2 pending per ED, Chest x-ray with findings consistent with COVID-19 pneumonia more severe on the left, CTPA ordered per ED physician and plan to obtain on way to ICU per discussion with ED physician. In the ED patient ministered Decadron 6 mg IV x1. T+S requested. Hospital Course: 1. Acute hypoxic respiratory failure secondary to COVID-[id number] male with no previous medical history presents to the hospital with Covid. Symptoms started about 10 days prior to admission and he presented with worsening shortness of breath. He was started on Decadron, and completed a course of convalescent plasma as well as remdesivir. He has continued to d ecline and require increasing oxygen requirements. On the day of transfer he was intubated in the ICU because he was satting in the 80s on 100% FiO2 on BiPAP. Initially on intubation he was started on a PEEP of 15 and FiO2 of 100% and had to be increased to PEEP of 18. The case was discussed with in [place] who did accept the patient in transfer as long as his oxygen saturations could be improved to over 90% this was done by placing him on his right side as his right lung was better than his left lung. He was flown to in guarded condition. He was able to have his visiting who was also here in the hospital with Covid prior to his departure. CT of his chest was negative for a PE on admission. Patient Problems: Active and Suspected Problems COVID-19 (Acute) Septic shock (Acute) Acute respiratory failure with hypoxia (Acute) Elevated LFTs (Acute) Hyperglycemia (Acute) VINNY (acute kidney injury) (Acute) - Physical Exam Vitals/I&O's: Vital Signs Temp Pulse Resp BP Pulse Ox 101.9 F H 118 H 12 146/74 H 92 03/24/20 12:00 03/24/20 12:00 03/24/20 12:00 03/24/20 12:00 03/24/20 12:00 Oxygen Flow Rate (L/min) 60 Oxygen Delivery Method Mechanical Ventilator Weight: 206 lb 9.17 oz Body Mass Index (BMI) 28.4 Intake and Output for Last 24 Hours 03/22/20 03/23/20 03/24/20 23:59 23:59 23:59 Intake Total 980 / 980 1541.00 / 1841.00 1203.06 / 1203.06 Output Total 1875 / 1875 1475 / 1475 420 / 420 Balance -895 / -895 66.00 / 366.00 783.06 / 783.06 General: - - Intubated and sedated HEENT: Atraumatic, PERRLA, Normocephalic Oral: Dry Mucosa Neck: Supple, No JVD Lungs: No rhonchi, No wheeze, No rales, Diminished, Tachypneic Cardiovascular: Regular rate, Regular Rhythm, Normal S1, Normal S2, No murmurs Abdomen: Soft, Non Tender, Non-Distended, No Hepato-splenomegaly Extremities: No edema, Capillary Refill Less than 3 Seconds Skin: No rashes, No breakdown Neurological: - - Debated and sedated Psych/Mental Status: - - Debated and sedated Microbiology Past 72 Hours 03/23/20 10:50 Blood Culture (Wb) - Right Wrist Bacteria Detection (PCR) - Final Staphylococcus epidermidis 03/23/20 10:50 Blood Culture (Wb) - Right Wrist Blood Culture - Preliminary Staphylococcus epidermidis 03/24/20 08:12 Sputum, Induced/Lukens Gram Stain - Final 03/20/20 20:05 Blood Culture (Wb) - Right Hand Blood Culture - Preliminary No growth in 48 hours. 03/20/20 19:50 Blood Culture (Wb) - Anticubital Left Blood Culture - Preliminary No growth in 48 hours. Laboratory Results 03/24/20 04:10: WBC 11.2 H, RBC 4.62, Hgb 14.1, Hct 43.3, MCV 93.7, MCH 30.5, MCHC 32.6, RDW Std Deviation 44.2 H, RDW Coeff of Carol 12.9, Plt Count 372, MPV 9.9 03/24/20 04:10: Sodium 135 L, Potassium 4.0, Chloride 107, Carbon Dioxide 22.0, Anion Gap 6, BUN 17, Creatinine 0.77, Estim Creat Clear Calc 76.52, Est GFR (MDRD) Af Amer 129, Est GFR (MDRD) Non-Af 107, BUN/Creatinine Ratio 22.2 H, Glucose 290 H, Calcium 7.6 L, Total Bilirubin 0.90, AST 52 H, ALT 49, Alkaline Phosphatase 103, Total Protein 7.2, Albumin 2.1 L, Globulin 5.1 H, Albumin/Globulin Ratio 0.4 L 03/24/20 04:10: Total Creatine Kinase 135, Triglycerides 109 03/24/20 08:40: Vancomycin Trough 11.8 03/24/20 11:09: Specimen Type ART, Sample Site L Radial, pH 7.27 L, Bicarbonate Actual 22.9, Total CO2 24, Base Excess -4 L, O2 Saturation 90 L, O2 % 100, ABG pCO2 49.9 H, ABG pO2 66 L, Chang Test Positive, Respiration Rate 12, O2 Delivery Device Adult Vent, Vent Mode AC, Tidal Volume 550, POC PEEP 18 03/24/20 11:41: POC Glucose 176 H Home Medications: Medications to take at Discharge NK 03/20/20 Primary Care Physician: Barron Luna 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
== END 2020-03-24 13:09 | disposition short-term general hospital (02) | DRG 871 ==
LOC: ED 21:37 → ICU 22:04
PROVIDERS: Internal Medicine Critical Care Medicine; Internal Medicine Infectious Disease; Admitting Provider Family Medicine; Emergency Provider Emergency Medicine; PCP Nurse Practitioner Family; Referring Provider Family Medicine; Visit Provider Family Medicine
DX: A41.89 Other specified sepsis (principal); U07.1 COVID-19; R65.21 Severe sepsis with septic shock; J96.01 Acute respiratory failure with hypoxia; J12.89 Other viral pneumonia; N17.9 Acute kidney failure, unspecified; E11.65 Type 2 diabetes mellitus with hyperglycemia
CPT/HCPCS: 31720; 36600; 71045; 71275; 80053; 80202; 82550; 82728; 82803; 82962; 83036; 83605; 83615; 83735; 83880; 84145; 84478; 84484; 85025; 85027; 85379; 86140; 86850; 86900; 86901; 87040; 87070; 87149; 87205; 87633; 87641; 93005; 94002; 94003; 97802; 99251; 99285; J2185; J7030; J7040; J7050; Q9967; A4216; C1751; G0463; J3010; J3490